=== PATIENT | female | born 1940 | race Caucasian/White ===

== ENCOUNTER 2019-03-29 05:42 | Day surgery (SDC) | payer MEDICARE, SELFPAY ==
[~2019-03-29] VITALS: Ht 167.6 cm; Wt 77.0 kg
[~2019-03-29 05:42] MED LIST: ALBU90OI INH; Aspir 8181 MG PO; HYDHCL25 PO; LISI5 PO; METO25ER PO; METPRE4DP PO; MULTI VITAMIN PO; Monodox100 MG PO; NITR.4SL SL; PROCODE120 PO; Prednisone20 MG PO; SPACE CHAMBER1 EACH MC; VIT C PO
--- NOTE | 2019-03-29 08:30 | NUR ---
Pt received from labor trainer, a/o right radial site without bleeding or hematoma. Pt wide awake cooperative. Slight tenderness on right radial site. Fingers slightly discolored. Pt with iv hep locked. Taking po fluids.
--- NOTE | 2019-03-29 08:45 | NUR ---
@ cc air removed from tr-band for discolored hand and numbness.
--- NOTE | 2019-03-29 09:21 | NUR ---
Pt up to brp voided daljit well. B/p elevated slightly. Eating breakfast.
--- NOTE | 2019-03-29 10:39 | NUR ---
3 cc air removed from tr-band. Discharge instructions given. Pt void 2 nd time.
--- NOTE | 2019-03-29 10:57 | NUR ---
Pt with all air removed from tr-band. Pt given Advance directive information for her and her . Pt also given Heart Failure Information from [facility]. Pt VSS. Taking pos fluids.
--- NOTE | 2019-03-29 11:15 | NUR ---
ASSUMED CARE OF PT. PT IS ALERT, ORIENTED, PLEASENT AND COOPERATIVE. PT DENIES PAIN, SOB OR NAUSEA. HR 80'S, B/P 147/77, SPO2 96% RA. R RADIAL NO SWELLING/HEMATOMA, TR BAND IN PLACE-DEFLATED; WRITST IMMOBILIZER IN PLACE. PT AMB TO BATHROOM WITH PROBLEM, SITE UNCHANGED WITH ACTVITY.
--- NOTE | 2019-03-29 11:16 | NUR ---
Sbramy Cordero RN reviewed right radial site.
--- NOTE | 2019-03-29 12:00 | NUR ---
REVIEWED DISCHARGE INSTRUCTIONS, MED LIST AND AFTER CARE SUPPLEMENTAL MATERIAL; PT VERBALIZED GOOD UNDERSTANDING. R RADIAL SITE REMAINS UNCHANGED, TR BAND REMOVED AND CLOTH DOT APPLIED WITH WRIST IMMOBILIZER; IV REMOVED CANNULA INTACT. PT DRESSED SELF WITHOUT ASSISTANCE, SITE UNCHANGED AFTER ACTIVITY.
--- NOTE | 2019-03-29 12:10 | NUR ---
PT LEFT FACILITY VIA W/C, CONDITION STABLE; TAXI TAKING PT HOME.
== END 2019-03-29 12:30 | disposition home or self-care (01) ==
LOC: MHTC 05:42
DX: I42.9 Cardiomyopathy, unspecified (principal); I25.10 Atherosclerotic heart disease of native coronary artery without angina pectoris; Z79.899 Other long term (current) drug therapy; Z79.82 Long term (current) use of aspirin; Z87.891 Personal history of nicotine dependence
CPT/HCPCS: 93458; 99152; 99153; C1769; C1894; J1644; J7030; Q9967

== ENCOUNTER 2023-04-18 13:01 | Emergency (ER) | payer MEDICARE, OTHER ==
[~2023-04-18] VITALS: Ht 167.6 cm; Wt 72.6 kg
[2023-04-18 14:17] LABS: BASOPHILS ABSOLUTE AUTO 0.03 K/mm3 (0.00-0.23); BASOPHILS PERCENT AUTO 1 % (0-2); EOSINOPHILS ABSOLUTE AUTO 0.15 K/mm3 (0.00-0.68); EOSINOPHILS PERCENT AUTO 3 % (0-6); Hematocrit 42.9 % (33.0-51.0); Hemoglobin 14.2 g/dL (11.5-16.0); IMMATURE GRAN ABSOLUTE AUTO 0.02 K/mm3 (0.00-0.10); IMMATURE GRAN PERCENT AUTO 0 % (0-1); LYMPHOCYTES ABSOLUTE AUTO 1.24 K/mm3 (0.84-5.20); LYMPHOCYTES PERCENT AUTO 23 % (21-46); MONOCYTES ABSOLUTE AUTO 0.66 K/mm3 (0.16-1.47); MONOCYTES PERCENT AUTO 12 % (4-13); Mean Corpuscular HGB 30.7 pg (26.0-34.0); Mean Corpuscular HGB Conc 33.1 g/dL (31.5-36.5); Mean Corpuscular Volume 93 fL (80-100); Mean Platelet Volume 10.1 fL (9.1-12.4); NEUTROPHILS ABSOLUTE AUTO 3.35 K/mm3 (1.96-9.15); NEUTROPHILS PERCENT AUTO 61 % (41-73); Platelet Count 271 K/mm3 (150-400); RDW Standard Deviation 44.4 fL (35.1-46.3); Red Blood Cell Count 4.63 M/mm3 (3.80-5.20); White Blood Cell Count 5.45 K/mm3 (4.00-11.30)
[2023-04-18 15:08] LABS: Albumin, Blood 3.5 g/dL (3.4-5.0); Albumin/Globulin Ratio 0.9 (0.8-1.8); Bilirubin, Total 0.5 mg/dL (0.1-1.0); Bun/Creatinine Ratio 29.5 (12.0-20.0); Calcium, Blood 9.8 mg/dL (8.5-10.1); Creatinine, Blood 0.61 mg/dL (0.40-1.00); Globulin, Blood 3.7 g/dL (2.2-4.0); Potassium, Blood 3.9 mmol/L (3.5-5.5); Total Protein, Blood 7.2 g/dL (6.4-8.2)
[2023-04-18] MEDS ORDERED: FURO20 PO (16:52)
[2023-04-18 18:03] VITALS: BP 131/80
== END 2023-04-18 18:17 | disposition home or self-care (01) ==
LOC: ER 13:01
PROVIDERS: Physician Assistant
DX: I50.20 Unspecified systolic (congestive) heart failure (principal); I44.7 Left bundle-branch block, unspecified; I42.8 Other cardiomyopathies; I25.10 Atherosclerotic heart disease of native coronary artery without angina pectoris; Z79.82 Long term (current) use of aspirin; Z87.891 Personal history of nicotine dependence
CPT/HCPCS: 71046; 80053; 83690; 83880; 84484; 85025; 93005; 93010; 96374; 99285-25; J1940

== ENCOUNTER 2023-06-04 09:37 | Inpatient (IN) | payer MEDICARE ==
[~2023-06-04] VITALS: Ht 165.1 cm; Wt 75.5 kg
[~2023-06-04 09:37] MED LIST changes: +FURO20 PO
[2023-06-04 10:25] LABS: BASOPHILS ABSOLUTE AUTO 0.03 K/mm3 (0.00-0.23); BASOPHILS PERCENT AUTO 1 % (0-2); EOSINOPHILS ABSOLUTE AUTO 0.13 K/mm3 (0.00-0.68); EOSINOPHILS PERCENT AUTO 2 % (0-6); Hematocrit 41.2 % (33.0-51.0); Hemoglobin 13.6 g/dL (11.5-16.0); IMMATURE GRAN ABSOLUTE AUTO 0.02 K/mm3 (0.00-0.10); IMMATURE GRAN PERCENT AUTO 0 % (0-1); LYMPHOCYTES ABSOLUTE AUTO 1.06 K/mm3 (0.84-5.20); LYMPHOCYTES PERCENT AUTO 17 % (21-46); MONOCYTES ABSOLUTE AUTO 0.71 K/mm3 (0.16-1.47); MONOCYTES PERCENT AUTO 11 % (4-13); Mean Corpuscular HGB 31.3 pg (26.0-34.0); Mean Corpuscular Volume 95 fL (80-100); Mean Platelet Volume 10.8 fL (9.1-12.4); NEUTROPHILS ABSOLUTE AUTO 4.38 K/mm3 (1.96-9.15); NEUTROPHILS PERCENT AUTO 69 % (41-73); Platelet Count 218 K/mm3 (150-400); RDW Coefficient Variation 13.4 % (11.7-14.2); RDW Standard Deviation 45.8 fL (35.1-46.3); Red Blood Cell Count 4.35 M/mm3 (3.80-5.20); White Blood Cell Count 6.33 K/mm3 (4.00-11.30)
[2023-06-04 10:34] LABS: Albumin/Globulin Ratio 0.9 (0.8-1.8); Bilirubin, Total 0.9 mg/dL (0.1-1.0); Bun/Creatinine Ratio 26.3 (12.0-20.0); Calcium, Blood 8.9 mg/dL (8.5-10.1); Creatinine, Blood 0.57 mg/dL (0.40-1.00); Globulin, Blood 3.2 g/dL (2.2-4.0); Potassium, Blood 3.9 mmol/L (3.5-5.5); Total Protein, Blood 6.2 g/dL (6.4-8.2)
[2023-06-04 16:40] LABS: CHOL/HDL RATIO 2.8; Cholesterol 168 mg/dL (50-200); HDL Cholesterol 60 mg/dL (>39); LDL/HDL RATIO 1.6; Low Density Lipoprotein Chol 95 mg/dL (0-110); Triglycerides 67 mg/dL (30-160); Very Low Density Lipoprot Chol 13 mg/dL (6-32)
[2023-06-04 16:42] VITALS: BP 121/81
--- NOTE | 2023-06-04 18:12 | NUR ---
ADMISSION NOTE: PATIENT ARRIVES TO ROOM VIA WHEELCHAIR AT 1640 FROM ER FOR DX'S OF ACUTE ON CHRONIC CHF. PATIENT A/OX4, ANSWER TO QUESTIONS APPROPRIATELY, CALM, PLEASANT AND COOPERATIVE c CARE. PATIENT ORIENTATED TO ROOM AND CALL SYSTEM. ADMISSION AND SKIN ASSESSMENT c 2 RN'S VERIFIED COMPLETED. PATIENT DENIES CP/PRESSURE, DIZZINESS AND GENERALIZED PAIN. PATIENT REPORTS BREATHING HAS IMPROVED AFTER RECEIVING 40 MG OF LASIX IN ER. PATIENT ON RA c SPO2 97%. PATIENT ON TELE, NSR HR IN THE HIGH 80'S BPM c OCCASIONAL BBB. PATIENT HAS PLUS 2 EDEMA TO BLE'S AND PLUS 2 PITTING EDEMA TO FEET. PATIENT IS CONTINENCE OF BLADDER AND AMBULATES TO BATHROOM INDEPENDENTLY WITHOUT USING ANY ASSISTIVE DEVICE. VITAL SIGNS REVIEWED. PIV TO RAC SALINE LOCKED. CALL LIGHT IN REACH.
--- NOTE | 2023-06-04 18:35 | NUR ---
LATE NOTE FOR 06/03/23 AT 1936 PT'S RN REQUESTED MED CHANGES. REPORTED PT WITH HYPEREMESIS WITH SEVERE EPIGASTRIC PAIN. THAT THE ZOFRAN WAS NOT WORKING, PT REPORTEDLY PREFERRED PHENERGAN MD; AND FENTANYL AND/OR DILAUDID WAS MORE EFFECTIVE. CALL PLACED TO MD SECURITY VEHICLE PATROL OFFICER, DR HOUSE VOICED HE WOULD ASSESS AND PUT IN THE ORDERS.
[2023-06-04 19:38] VITALS: BP 101/70
--- NOTE | 2023-06-05 04:20 | NUR ---
SHIFT SUMMARY LIANA WAS ALERT, FULLY ORIENTED, PLEASANT AND COOPERATIVE AT ASSESSMENT. PT ADMITTED FOR CHF EXACERBATION WITH EJF OF 20%, AND INCREASING SOB. PT IS STABLE ON HER FEET AND INDEPENDENT IN ROOM PT EXPLAINED TO ME THAT SHE DOES NOT LIKE TO TAKE ANY MEDICATION UNLESS IT IS ABSOLUTELY NECESSARY. PT STATES THAT THE LASIX SHE RECIEVED IN THE ED DID HELP WITH HER SOB. SHE WAS HAVING SOME DYSPNEA TONIGHT WHICH WAS ALLEVIATED WITH 1L O2 VIA NC.
[2023-06-05 04:29] VITALS: BP 103/66
[2023-06-05 06:12] LABS: BASOPHILS ABSOLUTE AUTO 0.03 K/mm3 (0.00-0.23); BASOPHILS PERCENT AUTO 1 % (0-2); EOSINOPHILS ABSOLUTE AUTO 0.22 K/mm3 (0.00-0.68); EOSINOPHILS PERCENT AUTO 4 % (0-6); Hematocrit 39.6 % (33.0-51.0); Hemoglobin 13.4 g/dL (11.5-16.0); IMMATURE GRAN ABSOLUTE AUTO 0.02 K/mm3 (0.00-0.10); IMMATURE GRAN PERCENT AUTO 0 % (0-1); LYMPHOCYTES ABSOLUTE AUTO 1.22 K/mm3 (0.84-5.20); LYMPHOCYTES PERCENT AUTO 22 % (21-46); MONOCYTES ABSOLUTE AUTO 0.65 K/mm3 (0.16-1.47); MONOCYTES PERCENT AUTO 12 % (4-13); Mean Corpuscular HGB 32.2 pg (26.0-34.0); Mean Corpuscular HGB Conc 33.8 g/dL (31.5-36.5); Mean Corpuscular Volume 95 fL (80-100); Mean Platelet Volume 11.4 fL (9.1-12.4); NEUTROPHILS ABSOLUTE AUTO 3.33 K/mm3 (1.96-9.15); NEUTROPHILS PERCENT AUTO 61 % (41-73); Platelet Count 207 K/mm3 (150-400); RDW Coefficient Variation 13.4 % (11.7-14.2); RDW Standard Deviation 45.7 fL (35.1-46.3); Red Blood Cell Count 4.16 M/mm3 (3.80-5.20); White Blood Cell Count 5.47 K/mm3 (4.00-11.30)
[2023-06-05 06:40] LABS: Bun/Creatinine Ratio 30.9 (12.0-20.0); Creatinine, Blood 0.62 mg/dL (0.40-1.00); Magnesium, Blood 2.1 mg/dL (1.6-2.4); Potassium, Blood 3.6 mmol/L (3.5-5.5)
[2023-06-05 08:06] VITALS: BP 113/73
--- NOTE | 2023-06-05 14:59 | NUR ---
SHIFT SUMMARY PT AWAKE DURING SHIFT REPORT THIS AM. VERY PLEASANT AND CO-OP. UP INDEPENDENTLY IN RM. RECEIVING LASIX FOR RECENTLY NEW DX OF CHF. PT UP TO BTHRM NEEDED VOIDING WELL. DR CLAY IN TO SEE PT EARLY. PT INSTRUCTED ON MONITORING URINE OUTPUT. PT ON RA WITH BIOX @ 94%. LE'S WITH 1+ EDEMA. FINE CRACKLES TO RLL. DENIES FURTHER NEEDS AT THIS TIME. CALL LT IN REACH.
[2023-06-05 16:08] VITALS: BP 99/71
[2023-06-05 17:45] VITALS: BP 107/73
[2023-06-05 19:20] VITALS: BP 108/67
--- NOTE | 2023-06-06 04:39 | NUR ---
SHIFT SUMMARY PT A&O X4, COOPERATIVE WITH CARE. PT AMBULATIN IND IN ROOM. CONTINENT. STRICT I&O. BLE EDEMA PRESENT ELEVATED ON PILLOWS. PT CURRENTLY ON RA WITH SATS @ 95%. FAMILY AT BEDSIDE AT START OF SHIFT. PT DENIES ANY PAIN OR DISCOMFORT. BED KEPT IN LOWEST POSITION WITH CALL LIGHT WITHIN REACH. WILL CONTINUE TO MONITOR.
[2023-06-06 05:22] VITALS: BP 112/73
[2023-06-06 05:43] LABS: Calcium, Blood 8.8 mg/dL (8.5-10.1); Creatinine, Blood 0.58 mg/dL (0.40-1.00); Potassium, Blood 3.4 mmol/L (3.5-5.5)
[2023-06-06 07:44] VITALS: BP 101/77
[2023-06-06 15:42] VITALS: BP 109/76
--- NOTE | 2023-06-06 16:26 | NUR ---
SHIFT SUMMARY PT RESTING QUIETLY AT START OF SHIFT. UP INDEPENDENTLY IN RM AND TO BTHRM. SITTING UP TO EOB FOR MEALS AND LATER TO CHAIR AT BS THRU OUT THE DAY. LISINOPRIL HELD FOR PARAMETERS TODAY. PT ABLE TO TAKE REMAINING PO MEDS. HAVING DIFFICULTY WITH LARGE KCL. PT C/O NAUSEA EARLY THIS AM, PRIOR TO BREAKFAST; "NO VOMITING, JUST NAUSEA". DR CLAY IN TO SEE PT AND DISCUSS PLAN OF CARE. PT TO REMAIN IN HOSPITAL ANOTHER DAY D/T BLE EDEMA; PT RECEIVING LASIX. PT HAD STATED THAT SHE [facility] AT 1300; [facility] NOTIFIED TO CONFIRM APPOINTMENT. PT MISTAKEN, NO APPOINTMENT SCHEDULED UNTIL Jul AT 10:45. PT INFORMED AND CALLED [facility] HERSELF, BEING TOLD THE SAME INFORMATION. BED LINENS CHANGED TODAY PT HAD ASKED TO TAKE A SHOWER, BUT THEN CONTINUED TO DECLINE, TO PRESENT, D/T NOT FEELING WELL. DR CLAY NOTIFIED FOR ZOFRAN; GIVEN PER EMAR. PT HAS ACTUALLY BEEN MUCH MORE ACTIVE TODAY THAN YESTERDAY AND W/O COMPLAINTS OF SOB. VSS; SEE CHART. PLEASANT AND CO-OP WITH CARE. ABLE TO MAKE NEEDS KNOWN.
--- NOTE | 2023-06-06 17:50 | NUR ---
PT REPORTED NAUSEA GONE AND FEELING MUCH BETTER. SITTING UP TO EOB EATING DINNER AND TALKING WITH FAMILY.
[2023-06-06 19:31] VITALS: BP 103/69
[2023-06-07 03:00] VITALS: BP 104/54
[2023-06-07 07:51] VITALS: BP 104/75
[2023-06-07 08:55] LABS: Bun/Creatinine Ratio 32.5 (12.0-20.0); Calcium, Blood 9.1 mg/dL (8.5-10.1); Creatinine, Blood 0.62 mg/dL (0.40-1.00); Potassium, Blood 4.3 mmol/L (3.5-5.5)
[2023-06-07 14:52] LABS: Adenovirus Not Detected (NOT DETECT); Bordetella pertussis Not Detected (NOT DETECT); Chlamydophila pneumoniae Not Detected (NOT DETECT); Coronavirus 229E Not Detected (NOT DETECT); Coronavirus HKU1 Not Detected (NOT DETECT); Coronavirus NL63 Not Detected (NOT DETECT); Coronavirus OC43 Not Detected (NOT DETECT); Human Metapneumovirus Not Detected (NOT DETECT); Human Rhinovirus/Enterovirus Not Detected (NOT DETECT); Influenza A/2009-H1 Not Detected (NOT DETECT); Influenza A/H1 Not Detected (NOT DETECT); Influenza A/H3 Not Detected (NOT DETECT); Influenza B Not Detected (NOT DETECT); Mycoplasma pneumoniae Not Detected (NOT DETECT); Parainfluenza Virus 1 Not Detected (NOT DETECT); Parainfluenza Virus 2 Not Detected (NOT DETECT); Parainfluenza Virus 3 Not Detected (NOT DETECT); Parainfluenza Virus 4 Not Detected (NOT DETECT); Respiratory Syncytial Virus Not Detected (NOT DETECT); SARS-Cov-2 (COVID-19), BioFire Not Detected (NOT DETECT)
[2023-06-07 15:22] VITALS: BP 106/72
[2023-06-07] MEDS ORDERED: FUROSEMIDE20 MG PO (18:28)
[2023-06-07] MEDS ORDERED: CARVEDILOL6.25 MG PO (18:28)
[2023-06-07] MEDS ORDERED: LOSARTAN POTASS25 M2 PO (18:29)
--- NOTE | 2023-06-07 18:48 | NUR ---
SUMMARY- PT A/O X4- UP IN ROOM INDEPENDANTLY. DIURESING/ON STRICT I/O. SWELLING IN LE MINIMAL 1 NON PITTING. DIM L BASE BUT NO CRACKLES HEARD. PT STATES SHE FEELS VERY WEAK AND WIPED OUT LIKE SHE MAY BE GETTING SICK. RESP SWAB NEGATIVE. TELE CALLED 12[address] OF [address] ELEVATION. RESOLVED BEFORE RN REMEMBERED TO CALL DR. CALLED DR ROBERTS AND NOTIFIED OF SLIGHT ST ELEVATION AROUND 1700, OBTAINED EKG THAT SHOWED SR, BBB, ATRIAL ENLARGEMENT, CALLED DR ROBERTS AFTERWARD TO NOTIFY OF RESULTS. PT TOLERATING FOOD AND FLUIDS. WILL REPORT TO NOC RN. -
[2023-06-07 19:39] VITALS: BP 98/72
[2023-06-08] VITALS (7 sets, daily range): BP systolic 102–126; BP diastolic 69–101
--- NOTE | 2023-06-08 11:13 | NUR ---
TELEMETRY NOTIFIED RN OF ST ALARMS ON THE PATIENTS TELEMETRY AT 11:09. PATIENT STATED AT THE TIME THAT SHE WAS NOT HAVING ANY SOB OR CHEST PAIN AT THAT TIME. DR. HOUSE NOTIFIED BY PHONE AT 11:[address] ALARMS, HE STATED THAT WITH HER BBB AND WITH HER BEING ASYMPTOMATIC, HE IS NOT CONCERNED OF THE ST ALARMS AT THIS TIME.
--- NOTE | 2023-06-08 18:53 | NUR ---
PATIENT IS ALERT AND ORIENTED AND COOPERATIVE WITH CARE. PATIENT C/O LIGHTHEADEDNESS AND ATTRIBUTES IT TO THE NEW MEDICATIONS SHES ON. DR. HOUSE IS AWARE OF THIS. PT HAD A BM THIS SHIFT. NEW IV PLACE IN HER RIGHT WRIST. PATIENT HOPES TO GO HOME TOMORROW. ON RA. WILL CONTINUE TO MONITOR
[2023-06-09 04:29] VITALS: BP 127/79
[2023-06-09 05:38] LABS: Bun/Creatinine Ratio 30.6 (12.0-20.0); Calcium, Blood 9.3 mg/dL (8.5-10.1); Creatinine, Blood 0.65 mg/dL (0.40-1.00); Magnesium, Blood 2.4 mg/dL (1.6-2.4); Potassium, Blood 4.2 mmol/L (3.5-5.5)
--- NOTE | 2023-06-09 06:50 | NUR ---
Shift Summary No calls from telemetry this shift. Pt still c/o some light-headedness. Pt independent in the room, slept well t/o the night, no c/o pain or nausea. Pt voiced concerns about current medications, markie lasix, education provided.
[2023-06-09 08:26] VITALS: BP 107/94
[2023-06-09 08:30] VITALS: BP 109/76
[2023-06-09 08:31] VITALS: BP 109/76
[2023-06-09] MEDS ORDERED: LISI5 PO (10:00)
[2023-06-09] MEDS ORDERED: JARDIANCE10 MG PO (10:00)
[2023-06-09] MEDS ORDERED: SPIR25 PO (10:01)
[2023-06-09 10:46] VITALS: BP 109/76
--- NOTE | 2023-06-09 10:47 | NUR ---
TELE CALLED AT [address] CHANGES. PT REPORTS NO CP. WILL CALL DR. HOUSE
--- NOTE | 2023-06-09 11:21 | NUR ---
DR. HOUSE READ THE EKG AND DETERMINED THE "ST CHANGES" REPORTED BY TELEMETRY WAS HER BBB. WILL CONTINUE TO DISCHARGE
== END 2023-06-09 11:42 | disposition home or self-care (01) | DRG 291 ==
LOC: ER 09:37 → MEDS 13:42 → ENPENDDIS 06-09 09:11 → MEDS 06-09 11:42
PROVIDERS: Physician Assistant; Student in an Organized Health Care Education/Training Program; ADMIT Family Medicine
DX: I11.0 Hypertensive heart disease with heart failure (principal); I50.43 Acute on chronic combined systolic (congestive) and diastolic (congestive) heart failure; I48.0 Paroxysmal atrial fibrillation; I25.10 Atherosclerotic heart disease of native coronary artery without angina pectoris; E78.5 Hyperlipidemia, unspecified; I34.0 Nonrheumatic mitral (valve) insufficiency; I44.7 Left bundle-branch block, unspecified; Z87.891 Personal history of nicotine dependence; E87.6 Hypokalemia; Z11.52 Encounter for screening for COVID-19
CPT/HCPCS: 0202U; 36415; 71046; 80048; 80053; 80061; 83690; 83735; 83880; 84484; 85025; 93005; 93010; 94760; 96372; 96374; 99285-25; A9270; G0378; J1650; J1940; J2405

== ENCOUNTER 2023-09-24 15:46 | Emergency (ER) | payer MEDICARE ==
[~2023-09-24] VITALS: Ht 167.6 cm; Wt 72.6 kg
[~2023-09-24 15:46] MED LIST changes: +BUME1 PO; +Bisoprolol Fumar5 MG PO; +CARV3.125 PO; +Diovan40 MG PO; +FUROSEMIDE20 MG PO; +JARDIANCE10 MG PO; +LOSARTAN POTASS25 M2 PO; +POTA10T PO; +SPIR25 PO
[2023-09-24 16:10] VITALS: BP 122/89
[2023-09-24 16:37] LABS: BASOPHILS ABSOLUTE AUTO 0.04 K/mm3 (0.00-0.23); BASOPHILS PERCENT AUTO 1 % (0-2); EOSINOPHILS ABSOLUTE AUTO 0.21 K/mm3 (0.00-0.68); EOSINOPHILS PERCENT AUTO 3 % (0-6); Hematocrit 42.1 % (33.0-51.0); Hemoglobin 13.6 g/dL (11.5-16.0); IMMATURE GRAN ABSOLUTE AUTO 0.03 K/mm3 (0.00-0.10); IMMATURE GRAN PERCENT AUTO 0 % (0-1); LYMPHOCYTES ABSOLUTE AUTO 1.12 K/mm3 (0.84-5.20); LYMPHOCYTES PERCENT AUTO 14 % (21-46); MONOCYTES ABSOLUTE AUTO 0.89 K/mm3 (0.16-1.47); MONOCYTES PERCENT AUTO 11 % (4-13); Mean Corpuscular HGB 30.6 pg (26.0-34.0); Mean Corpuscular HGB Conc 32.3 g/dL (31.5-36.5); Mean Corpuscular Volume 95 fL (80-100); Mean Platelet Volume 10.3 fL (9.1-12.4); NEUTROPHILS PERCENT AUTO 71 % (41-73); Platelet Count 234 K/mm3 (150-400); Red Blood Cell Count 4.44 M/mm3 (3.80-5.20); White Blood Cell Count 7.79 K/mm3 (4.00-11.30)
[2023-09-24 16:57] LABS: Albumin, Blood 3.2 g/dL (3.4-5.0); Bilirubin, Total 1.1 mg/dL (0.1-1.0); Bun/Creatinine Ratio 24.2 (12.0-20.0); Calcium, Blood 8.9 mg/dL (8.5-10.1); Creatinine, Blood 0.7 mg/dL (0.40-1.00); Globulin, Blood 3.2 g/dL (2.2-4.0); Potassium, Blood 4.3 mmol/L (3.5-5.5); Total Protein, Blood 6.4 g/dL (6.4-8.2)
[2023-09-24] MEDS ORDERED: Furosemide 10 MG/ML 4ML Vial IV ONE (18:20)
== END 2023-09-24 18:43 | disposition home or self-care (01) ==
LOC: ER 15:46
PROVIDERS: Physician Assistant
DX: I11.0 Hypertensive heart disease with heart failure (principal); I50.40 Unspecified combined systolic (congestive) and diastolic (congestive) heart failure; I25.10 Atherosclerotic heart disease of native coronary artery without angina pectoris; Z87.891 Personal history of nicotine dependence; Z91.148 Patient's other noncompliance with medication regimen for other reason
CPT/HCPCS: 71046; 80053; 83880; 85025; 93005; 93010; 96374; 99285-25; J1940

== ENCOUNTER 2023-10-04 11:04 | Inpatient (IN) | payer MEDICARE ==
[~2023-10-04] VITALS: Ht 167.6 cm; Wt 77.7 kg
[2023-10-04 12:15] LABS: BASOPHILS ABSOLUTE AUTO 0.03 K/mm3 (0.00-0.23); BASOPHILS PERCENT AUTO 0 % (0-2); EOSINOPHILS ABSOLUTE AUTO 0.06 K/mm3 (0.00-0.68); EOSINOPHILS PERCENT AUTO 1 % (0-6); Hematocrit 42.6 % (33.0-51.0); IMMATURE GRAN ABSOLUTE AUTO 0.04 K/mm3 (0.00-0.10); IMMATURE GRAN PERCENT AUTO 1 % (0-1); LYMPHOCYTES ABSOLUTE AUTO 0.86 K/mm3 (0.84-5.20); LYMPHOCYTES PERCENT AUTO 13 % (21-46); MONOCYTES ABSOLUTE AUTO 0.79 K/mm3 (0.16-1.47); MONOCYTES PERCENT AUTO 12 % (4-13); Mean Corpuscular HGB Conc 32.9 g/dL (31.5-36.5); Mean Corpuscular Volume 94 fL (80-100); Mean Platelet Volume 10.3 fL (9.1-12.4); NEUTROPHILS ABSOLUTE AUTO 5.11 K/mm3 (1.96-9.15); NEUTROPHILS PERCENT AUTO 74 % (41-73); Platelet Count 236 K/mm3 (150-400); RDW Coefficient Variation 13.5 % (11.7-14.2); RDW Standard Deviation 46.5 fL (35.1-46.3); Red Blood Cell Count 4.52 M/mm3 (3.80-5.20); White Blood Cell Count 6.89 K/mm3 (4.00-11.30)
[2023-10-04 12:41] LABS: Albumin, Blood 2.9 g/dL (3.4-5.0); Albumin/Globulin Ratio 0.8 (0.8-1.8); Bilirubin, Total 1.3 mg/dL (0.1-1.0); Bun/Creatinine Ratio 27.4 (12.0-20.0); Calcium, Blood 9.5 mg/dL (8.5-10.1); Creatinine, Blood 0.55 mg/dL (0.40-1.00); Globulin, Blood 3.5 g/dL (2.2-4.0); Potassium, Blood 3.5 mmol/L (3.5-5.5); Total Protein, Blood 6.4 g/dL (6.4-8.2)
[2023-10-04] MEDS ORDERED: Furosemide 10 MG/ML 4ML Vial IV ONE (16:30)
[2023-10-04] MEDS ORDERED: Ondansetron HCl 2 MG / ML 2ML Vial IV PRN (18:50)
[2023-10-04] MEDS ORDERED: FURO20 PO (20:11)
[2023-10-04 22:53] VITALS: BP 123/79
[2023-10-05] VITALS (9 sets, daily range): BP systolic 90–124; BP diastolic 63–94
[2023-10-05 05:11] LABS: BASOPHILS ABSOLUTE AUTO 0.05 K/mm3 (0.00-0.23); BASOPHILS PERCENT AUTO 1 % (0-2); EOSINOPHILS ABSOLUTE AUTO 0.22 K/mm3 (0.00-0.68); EOSINOPHILS PERCENT AUTO 4 % (0-6); Hematocrit 39.6 % (33.0-51.0); Hemoglobin 12.8 g/dL (11.5-16.0); IMMATURE GRAN ABSOLUTE AUTO 0.02 K/mm3 (0.00-0.10); IMMATURE GRAN PERCENT AUTO 0 % (0-1); LYMPHOCYTES ABSOLUTE AUTO 1.12 K/mm3 (0.84-5.20); LYMPHOCYTES PERCENT AUTO 18 % (21-46); MONOCYTES ABSOLUTE AUTO 0.81 K/mm3 (0.16-1.47); MONOCYTES PERCENT AUTO 13 % (4-13); Mean Corpuscular HGB 31.2 pg (26.0-34.0); Mean Corpuscular HGB Conc 32.3 g/dL (31.5-36.5); Mean Corpuscular Volume 97 fL (80-100); Mean Platelet Volume 10.5 fL (9.1-12.4); NEUTROPHILS ABSOLUTE AUTO 4.05 K/mm3 (1.96-9.15); NEUTROPHILS PERCENT AUTO 65 % (41-73); Platelet Count 219 K/mm3 (150-400); RDW Coefficient Variation 13.6 % (11.7-14.2); RDW Standard Deviation 48.3 fL (35.1-46.3); White Blood Cell Count 6.27 K/mm3 (4.00-11.30)
[2023-10-05 06:03] LABS: Albumin, Blood 2.7 g/dL (3.4-5.0); Albumin/Globulin Ratio 0.9 (0.8-1.8); Bun/Creatinine Ratio 26.4 (12.0-20.0); Calcium, Blood 9.3 mg/dL (8.5-10.1); Creatinine, Blood 0.76 mg/dL (0.40-1.00); Globulin, Blood 3.1 g/dL (2.2-4.0); Potassium, Blood 3.6 mmol/L (3.5-5.5); Total Protein, Blood 5.8 g/dL (6.4-8.2)
--- NOTE | 2023-10-05 06:09 | NUR ---
SHIFT SUMMARY: Pt admitted for acute on chronic CHF and is a full code. Is alert and able to make needs known. ADLs have been SBA. denies pain or discomfort when asked. Stated that she did have some palpitations causing some short of breath but they did resolve.
[2023-10-05] MEDS ORDERED: Carvedilol 3.125 MG Tab PO SCH (08:00)
[2023-10-05] MEDS ORDERED: Losartan Potassium 25 MG Tab PO SCH (09:00)
[2023-10-05] MEDS ORDERED: Empagliflozin 10 MG TAB PO SCH (09:00)
[2023-10-05] MEDS ORDERED: Spironolactone 25 MG Tab PO SCH (09:00)
[2023-10-05] MEDS ORDERED: Furosemide 10 MG/ML 4ML Vial IV SCH (09:00)
[2023-10-05] MEDS ORDERED: Enoxaparin 40 MG/0.4 ML SYR SC SCH (09:00)
--- NOTE | 2023-10-05 16:28 | NUR ---
Patient immediately shares her medical history and her desire to incorporate more wholistic medicine into the equation but understands the about adhering to the prescribed medical path. She talks about her 's lack of coping skills and resources. She has a strong Gnosticist kelsey and requests prayer, which I gladly supply. I also allow space for therapeutic listening and for her verbalize the many worries she is carrying. We discuss the importance of self-care and rest (not just physical rest but mental and emotional rest as well). I provide prayer which patient was very enthusiastic about and asked if I could return next day and provde again. I will continue to remaina available to patient and family.
--- NOTE | 2023-10-05 16:42 | NUR ---
SHIFT SUMMARY-DAY A&O X4. ABLE TO MAKE NEEDS KNOWN. ADL'S HAVE BEEN SBA AND USES WALKER AT TIMES. BEDSIDE COMMODE AT BEDSIDE TO GET MORE ACCURATE I&O. DENIES PAIN OR DISCOMFORT. WAS ANXIOUS THIS MORNING AND BETTER THIS AFTERNOON WITH FAMILY VISITING. EMDEMA TO LEGS AND FEET WITH SCD'S ON. PEDAL PLULSES WEAK BUT PRESENT. HAS BEEN FREQUENT ON THE CALL LIGHT.
--- NOTE | 2023-10-05 17:14 | NUR ---
CALLED DR HUTCHINS- PT BP 110/81 SHE HAS CARVEDILOL AND 40MG IV LASIX ORDERED NOW. SPOKE TO DR HUTCHINS AND HE IS AWARE OF THE BP AT THIS TIME. ORDER RECIEVED TO GIVE THESE MEDS.
--- NOTE | 2023-10-05 17:49 | NUR ---
SHIFT SUMMARY- PT ALERT AND ORIENTED, HAS HAD NO ACUTE CHANGE T/O THE SHIFT. SPOKE TO MD ABOUT BLOOD PRESSURES, PT TO CONTINUE TO RECIEVE IV DIURETICS AT THIS TIME. PT PLACED ON A 2L FLUID RESTRICTION DURING THE DAY. PT HAS BEEN UP INDEPENDENTLY TO THE BSC T/O THE DAY. BSC BEING USED THE PT WAS UNABLE TO HIT THE HAT FOR ACCURATE I&O'S. PT SITTING ON THE EOB NO S&S OF DISTRESS NOTED AT THIS TIME.
[2023-10-05 20:29] LABS: Bun/Creatinine Ratio 28.9 (12.0-20.0); Calcium, Blood 9.1 mg/dL (8.5-10.1); Creatinine, Blood 0.83 mg/dL (0.40-1.00); Potassium, Blood 3.7 mmol/L (3.5-5.5)
[2023-10-06 05:26] VITALS: BP 91/62
--- NOTE | 2023-10-06 05:40 | NUR ---
END OF SHIFT SUMMARY PT A&OX4, VERY ANXIOUS, SOB WITH EXERTION AND ANXIETY. PT COMPLAINS THAT LASIX AND COREG ARE CAUSING HER TO FEEL SICK BUT CANT VERBALIZE EXACT SYMPTOMS ALTHOUGH DURING NIGHT, PT STATED SHE FELT NAUSEATED. ZOFRAN GIVEN WITH GOOD EFFECT. PT STATED SHE NO LONGER WANTS TO TAKE MEDS, ENCOURAGED PT TO DISCUSS WITH MD AGAIN. EDEMA TO BLE, ENCOURAGED PT TO ELEVATE ON PILLOWS.
[2023-10-06 05:51] LABS: BASOPHILS ABSOLUTE AUTO 0.05 K/mm3 (0.00-0.23); BASOPHILS PERCENT AUTO 1 % (0-2); EOSINOPHILS PERCENT AUTO 4 % (0-6); Hematocrit 40.1 % (33.0-51.0); Hemoglobin 12.9 g/dL (11.5-16.0); IMMATURE GRAN ABSOLUTE AUTO 0.01 K/mm3 (0.00-0.10); IMMATURE GRAN PERCENT AUTO 0 % (0-1); LYMPHOCYTES PERCENT AUTO 21 % (21-46); MONOCYTES ABSOLUTE AUTO 0.71 K/mm3 (0.16-1.47); MONOCYTES PERCENT AUTO 12 % (4-13); Mean Corpuscular HGB Conc 32.2 g/dL (31.5-36.5); Mean Corpuscular Volume 96 fL (80-100); Mean Platelet Volume 10.5 fL (9.1-12.4); NEUTROPHILS ABSOLUTE AUTO 3.61 K/mm3 (1.96-9.15); NEUTROPHILS PERCENT AUTO 62 % (41-73); Platelet Count 230 K/mm3 (150-400); RDW Coefficient Variation 13.6 % (11.7-14.2); RDW Standard Deviation 48.1 fL (35.1-46.3); Red Blood Cell Count 4.16 M/mm3 (3.80-5.20); White Blood Cell Count 5.78 K/mm3 (4.00-11.30)
[2023-10-06 06:25] LABS: Calcium, Blood 9.2 mg/dL (8.5-10.1); Creatinine, Blood 0.72 mg/dL (0.40-1.00); Potassium, Blood 3.6 mmol/L (3.5-5.5)
[2023-10-06 08:20] VITALS: BP 116/74
--- NOTE | 2023-10-06 09:07 | NUR ---
Patient is sitting on a chair and shares about her spouse and the disruption that he caused in the hospital and how this causes unrest for her. She also tells me her concerns about him not managing the finances well while she is unable to supervise spending. Inspite of the chaos that spins around her she states that she is improving medically and that she got a wonderful deep sleep last night. I provide gentle counseling program leader and prayer. Patient showed signs of increased peace. Spiritual care will remain available.
--- NOTE | 2023-10-06 09:47 | NUR ---
"Spiritual Care Support | Pt./Nurse request. Contacted by attending nurse at the request of the Pt. who had misplaced Spiritual Care contact info (business card). Replacement card is provided. Pt. verbalized gratitude for the spiritual care support."
--- NOTE | 2023-10-06 16:03 | NUR ---
SHIFT SUMMARY MS NORRIS C/O FEELING GENERALLY UNWELL TODAY. SHE SAID THAT SHE DOES NOT TOLERATE HER MEDICATIONS AND THAT THE SYMPTOMS THAT SHE IS HAVING TODAY ARE SIMILAR TO SYMPTOMS SHE HAS HAD IN THE PAST IN RELATION TO HER MEDICATIONS. SHE DESCRIBES VISUAL HALLUCINATIONS, SAID THAT WITH HER EYES CLOSED SHE CAN SEE A "MOVIE" PLAY OUT IN FROM OF HER OF A MAN WITH A DOG, DENIES AUDITORY HALLUCINATIONS. SHE C/O FEELING LIGHTHEADED "LIKE I'M GOING TO PASS OUT AT TIMES" DIZZYNESS, NAUSEA. SHE SAID THAT SHE IS STARTING TO FEEL A LITTLE BETTER AFTER ZOFRAN. HER SISTER IS AT HER BEDSIDE WHO SAID THAT THEY ARE WORKING ON A REFERAL TO A [facility] FOR SURGERY. SHE SAID THAT SHE JUST CAN'T TAKE HER MEDICATIONS. BED LOW, CALL LIGHT IN REACH.
[2023-10-06 16:17] VITALS: BP 97/36
--- NOTE | 2023-10-06 16:27 | NUR ---
MD CALL PULSE OX WHEN PT DOSING WAS IN THE 70S WITH A GOOD WAVEFORM. BP LOW AT 97/36. WHEN AWAKE PULSE OX CAME UP TO 90S WITH DEEP BREATHS. PUT ON OXYGEN 2L NC AND DR PERRY NOTIFIED. HE IS PUTTING IN ORDER FOR ECHO, GAVE ME ORDER FOR OXYGEN AND CONTINUOUS PULSE OX. TELEPHONE ORDER TO HOLD BP MEDS AND LASIX FOR SBP LESS THAN 100.
[2023-10-06 17:44] VITALS: BP 107/82
[2023-10-06 19:54] VITALS: BP 98/71
[2023-10-07 03:23] VITALS: BP 115/78
[2023-10-07 05:45] LABS: BASOPHILS ABSOLUTE AUTO 0.03 K/mm3 (0.00-0.23); BASOPHILS PERCENT AUTO 0 % (0-2); EOSINOPHILS ABSOLUTE AUTO 0.04 K/mm3 (0.00-0.68); EOSINOPHILS PERCENT AUTO 1 % (0-6); Hematocrit 40.2 % (33.0-51.0); IMMATURE GRAN ABSOLUTE AUTO 0.03 K/mm3 (0.00-0.10); IMMATURE GRAN PERCENT AUTO 0 % (0-1); LYMPHOCYTES ABSOLUTE AUTO 0.88 K/mm3 (0.84-5.20); LYMPHOCYTES PERCENT AUTO 11 % (21-46); MONOCYTES ABSOLUTE AUTO 1.08 K/mm3 (0.16-1.47); MONOCYTES PERCENT AUTO 13 % (4-13); Mean Corpuscular HGB Conc 32.3 g/dL (31.5-36.5); Mean Corpuscular Volume 96 fL (80-100); Mean Platelet Volume 10.9 fL (9.1-12.4); NEUTROPHILS PERCENT AUTO 75 % (41-73); Platelet Count 252 K/mm3 (150-400); RDW Coefficient Variation 13.6 % (11.7-14.2); RDW Standard Deviation 47.5 fL (35.1-46.3); White Blood Cell Count 8.16 K/mm3 (4.00-11.30)
--- NOTE | 2023-10-07 07:29 | NUR ---
END OF SHIFT SUMMARY PT A&OX4, REMAINS ANXIOUS AT TIMES, C/O FEELING UNWELL DUE TO MEDICINES GIVEN, SOMETIMES NAUSEATED. PT STATES SHE NO LONGER WANTS TO TAKE MEDS FOR THIS REASON, ENCOURAGED PT TO SPEAK WITH MD REGARDING CONCERNS. ZOFRAN GIVEN WITH GOOD EFFECT. REMAINS ON 2L VIA NC, MONITORED ON CONT PULSE OX. STRICT I&O MAINTAINED, PT COMPLIANT WITH FLUID RESTRICTION. BLE EDEMA IMPROVING.
[2023-10-07 07:51] VITALS: BP 98/66
[2023-10-07 10:16] VITALS: BP 132/81
[2023-10-07 15:12] VITALS: BP 104/72
[2023-10-07 17:34] VITALS: BP 100/72
--- NOTE | 2023-10-07 17:46 | NUR ---
SHIFT SUMMARY 0800 COREG HELD D/T LOW BLOOD PRESSURE BUT MS NORRIS HAS TAKEN ALL OF HER OTHER PRESCRIBED MEDICATIONS TODAY. SHE DESCRIBES LESS DIZZYNESS TODAY THAN YESTERDAY. SHORT LASTING NAUSEA, NOT REQUIRING ANY TREATMENT. SHE REPORTS IMPROVED APPETITE AND HAS EATEN MORE FROM HER TRAYS TODAY. SHE REMAINS ON 2L N/C OXYGEN, CONTINUOUS PULSE OX IN THE 90S ON THE 2L. DISCUSSIONS WITH PT, HER SON AND HER SISTER REGARDING CHF, MEDICATIONS, AND MEDICAL CONDITION. SOME QUESTIONS ANSWERED THOUGH THEY STILL HAVE SOME SPECIFIC QUESTIONS ABOUT MEDICATIONS FOR MDS. HER SON SAID HE IS LOOKING FOR A MIRACLE MEDICATION. MS NORRIS HASN'T BEEN ANXIOUS TODAY. UP TO THE BATHROOM AND TO THE CHAIR WITH STANDBY ASSISTANCE. BED AND CHAIR ALARMS USED. CALL LIGHT IN REACH.
[2023-10-07 19:46] LABS: Bun/Creatinine Ratio 29.7 (12.0-20.0); Calcium, Blood 8.9 mg/dL (8.5-10.1); Creatinine, Blood 0.81 mg/dL (0.40-1.00); Potassium, Blood 3.3 mmol/L (3.5-5.5)
[2023-10-07 19:47] VITALS: BP 98/60
[2023-10-08 02:56] VITALS: BP 105/72
[2023-10-08 05:46] LABS: BASOPHILS ABSOLUTE AUTO 0.05 K/mm3 (0.00-0.23); BASOPHILS PERCENT AUTO 1 % (0-2); EOSINOPHILS ABSOLUTE AUTO 0.16 K/mm3 (0.00-0.68); EOSINOPHILS PERCENT AUTO 2 % (0-6); Hematocrit 40.4 % (33.0-51.0); IMMATURE GRAN ABSOLUTE AUTO 0.05 K/mm3 (0.00-0.10); IMMATURE GRAN PERCENT AUTO 1 % (0-1); LYMPHOCYTES ABSOLUTE AUTO 0.83 K/mm3 (0.84-5.20); LYMPHOCYTES PERCENT AUTO 9 % (21-46); MONOCYTES PERCENT AUTO 12 % (4-13); Mean Corpuscular HGB 30.8 pg (26.0-34.0); Mean Corpuscular HGB Conc 32.2 g/dL (31.5-36.5); Mean Corpuscular Volume 96 fL (80-100); Mean Platelet Volume 10.4 fL (9.1-12.4); NEUTROPHILS ABSOLUTE AUTO 6.81 K/mm3 (1.96-9.15); NEUTROPHILS PERCENT AUTO 76 % (41-73); Platelet Count 251 K/mm3 (150-400); RDW Coefficient Variation 13.4 % (11.7-14.2); Red Blood Cell Count 4.22 M/mm3 (3.80-5.20)
--- NOTE | 2023-10-08 06:06 | NUR ---
END OF SHIFT SUMMARY PT A&OX4, LESS ANXIOUS TODAY. REPORTS FEELING BETTER OVERALL. OXYGEN TITRATED DOWN TO 1L THIS AM, MAINTAINING SATS >92, MONITORED ON CONTINUOUS PULSE OX. BLE EDEMA IMPROVING FROM ADMIT. PT COMPLIANT WITH FLUID RESTRICTION. AMBULATING WELL WITH SBA. NO ACUTE EVENTS OVERNIGHT.
[2023-10-08 07:21] VITALS: BP 110/67
[2023-10-08 12:21] LABS: Bun/Creatinine Ratio 28.9 (12.0-20.0); Creatinine, Blood 0.73 mg/dL (0.40-1.00); Potassium, Blood 3.4 mmol/L (3.5-5.5)
[2023-10-08] MEDS ORDERED: Potassium Chloride 20 MEQ TabCR PO STA (14:26)
[2023-10-08] MEDS ORDERED: CARV3.125 PO (15:50)
[2023-10-08] MEDS ORDERED: SPIR25 PO (15:51)
[2023-10-08] MEDS ORDERED: JARDIANCE10 MG PO (15:51)
[2023-10-08] MEDS ORDERED: LOSA25 PO (15:51)
--- NOTE | 2023-10-08 16:28 | NUR ---
DISCHARGE NOTE MS NORRIS WAS DISCHARGED HOME WITH HER SON VIA WHEELCHAIR AT 1630HRS. SHE HAS BEEN C/O INTERMITTANT LIGHTHEDEDNESS ALL DAY. SEEN AND ASSESSED BY DR PERRY. MS NORRIS DISCUSSED WITH MD AND VERBALISED HER DESIRE TO BE DISCHARGED HOME. PT VERBALISED UNDERSTANDING OF WRITTEN AND VERBAL DISCHARGE INSTRUCTIONS AND HAD NO FURTHER QUESTIONS AT TIME OF DISCHARGE. SHE HAS BEEN WALKING IN THTE ROOM/BATHROOM WITH STEADY GAIT. SHE VERBALISED THAT SHE PANS TO TAKE ALL OF HER MEDICATIONS AT HOME.
== END 2023-10-08 16:31 | disposition home health service (06) | DRG 291 ==
LOC: ER 11:04 → MEDS 18:48
PROVIDERS: Student in an Organized Health Care Education/Training Program; ADMIT Internal Medicine
DX: I11.0 Hypertensive heart disease with heart failure (principal); I50.23 Acute on chronic systolic (congestive) heart failure; I08.1 Rheumatic disorders of both mitral and tricuspid valves; I27.20 Pulmonary hypertension, unspecified; I25.5 Ischemic cardiomyopathy; E78.5 Hyperlipidemia, unspecified; I25.10 Atherosclerotic heart disease of native coronary artery without angina pectoris; R73.9 Hyperglycemia, unspecified; T50.2X6A Underdosing of carbonic-anhydrase inhibitors, benzothiadiazides and other diuretics, initial encounter; Z91.138 Patient's unintentional underdosing of medication regimen for other reason; Z87.891 Personal history of nicotine dependence
CPT/HCPCS: 36415; 71046; 80048; 80053; 83880; 85025; 93005; 93010; 94761; 96374; 97116; 97161; 99285-25; A9270; C8929; J1650; J1940; J2405; Q9957

== ENCOUNTER 2023-10-16 11:17 | Emergency (ER) | payer MEDICARE ==
[~2023-10-16] VITALS: Ht 167.6 cm; Wt 77.1 kg
[2023-10-16 16:45] VITALS: BP 110/78
== END 2023-10-16 16:55 | disposition home or self-care (01) ==
LOC: ER 11:17
DX: I11.0 Hypertensive heart disease with heart failure (principal); I50.40 Unspecified combined systolic (congestive) and diastolic (congestive) heart failure; J90 Pleural effusion, not elsewhere classified; E78.5 Hyperlipidemia, unspecified; I25.10 Atherosclerotic heart disease of native coronary artery without angina pectoris; I42.8 Other cardiomyopathies; Z87.891 Personal history of nicotine dependence; Z79.84 Long term (current) use of oral hypoglycemic drugs; Z79.899 Other long term (current) drug therapy

== ENCOUNTER 2024-05-15 14:37 | Inpatient (IN) | payer MEDICARE ==
[~2024-05-15] VITALS: Ht 167.6 cm; Wt 74.6 kg
[~2024-05-15 14:37] MED LIST changes: +ALBU8HFA2 INH; +ENTRESTO 24 MG1 EACH PO; +LOSA25 PO
[2024-05-15 15:59] LABS: BASOPHILS ABSOLUTE AUTO 0.01 K/mm3 (0.00-0.23); BASOPHILS PERCENT AUTO 0 % (0-2); EOSINOPHILS PERCENT AUTO 0 % (0-6); Hematocrit 46.7 % (33.0-51.0); Hemoglobin 15.3 g/dL (11.5-16.0); IMMATURE GRAN ABSOLUTE AUTO 0.03 K/mm3 (0.00-0.10); IMMATURE GRAN PERCENT AUTO 0 % (0-1); LYMPHOCYTES ABSOLUTE AUTO 0.51 K/mm3 (0.84-5.20); LYMPHOCYTES PERCENT AUTO 7 % (21-46); MONOCYTES ABSOLUTE AUTO 1.02 K/mm3 (0.16-1.47); MONOCYTES PERCENT AUTO 13 % (4-13); Mean Corpuscular HGB 31.8 pg (26.0-34.0); Mean Corpuscular HGB Conc 32.8 g/dL (31.5-36.5); Mean Corpuscular Volume 97 fL (80-100); NEUTROPHILS PERCENT AUTO 80 % (41-73); Platelet Count 189 K/mm3 (150-400); RDW Standard Deviation 50.4 fL (35.1-46.3); Red Blood Cell Count 4.81 M/mm3 (3.80-5.20); White Blood Cell Count 7.87 K/mm3 (4.00-11.30)
[2024-05-15 16:13] LABS: Albumin/Globulin Ratio 0.9 (0.8-1.8); Bun/Creatinine Ratio 18.6 (12.0-20.0); Calcium, Blood 9.4 mg/dL (8.5-10.1); Creatinine, Blood 0.59 mg/dL (0.40-1.00); Globulin, Blood 3.2 g/dL (2.2-4.0); Potassium, Blood 4.1 mmol/L (3.5-5.5); Total Protein, Blood 6.2 g/dL (6.4-8.2)
[2024-05-15] MEDS ORDERED: Bumetanide 0.25 MG/ML 10ML Vial IV ONE (19:35)
[2024-05-15] MEDS ORDERED: Albuterol 2.5 MG/3 ML VIAL INH PRN (20:20)
[2024-05-15 20:25] LABS: Influenza A, PCR NEGATIVE (NEGATIVE); Influenza B, PCR NEGATIVE (NEGATIVE); Resp Syncytial Virus, PCR NEGATIVE (NEGATIVE); SARS-Cov-2 (COVID-19) PCR, MMC NEGATIVE (NEGATIVE)
[2024-05-15] MEDS ORDERED: Sacubitril/Valsartan 24 MG-26 MG Tab PO SCH (21:00)
[2024-05-15] MEDS ORDERED: FLU VACC TS2024-25(6MOS UP)/PF 45 MCG/0.5 ML SYRINGE IM ONE (22:00)
[2024-05-15 22:38] VITALS: BP 109/93
--- NOTE | 2024-05-15 23:13 | NUR ---
PATIENT IS A NEW ADMIT FROM THE ED. TWO ASSIST FROM GURNEY TO BED. AXOX 4 ON 4L O2 NC AND 4L O2 NC BASELINE. SHE WAS ON 3L O2 A MONTH AGO. PUREWICK IN PLACE FROM ED AND CHANGED OUT AND SETUP AGAIN. IV BUMEX GIVEN IN ED PER ED RN. DENIES CHEST PAIN AND N/V. SOB W/EXERTION. TELEMETRY PLACED AND TECH REPORTS NSR 97. LIVE WITH IN [facility]. REPORTS WANTS TO SLEEP AFTER ASSESSMENT AND NO TV. ORIENTED TO ROOM AND CALL LIGHT SYSTEM. WCTM.
[2024-05-16 03:54] VITALS: BP 101/68
--- NOTE | 2024-05-16 04:18 | NUR ---
SHIFT SUMMARY PATIENT HAD A SIX BEAT RUN OF V-TACH AND BACK TO NSR PER NEW GRAD RN. NSR 97 ON ADMIT. AXOX 4 AND BEDREST REPORTING TOO WEAK TO AMBULATE. ON 4L O2 NC AND BASELINE THIS LAST MONTH. PUREWICK IN PLACE WITH 2,550 mL URINE OUTPUT AT THIS POINT. DENIES CHEST PAIN AND N/V. SOB WITH EXERTION. VSS/AFEBRILE. SLEPT AFTER ASSESSMENT. CALL LIGHT IN REACH. BED IN LOWEST POSITION. WILL CONTINUE TO MONITOR UNTIL DAY SHIFT NURSE ASSUMES CARE.
[2024-05-16 06:10] LABS: Bun/Creatinine Ratio 19.2 (12.0-20.0); Calcium, Blood 9.1 mg/dL (8.5-10.1); Creatinine, Blood 0.62 mg/dL (0.40-1.00)
[2024-05-16 06:59] VITALS: BP 127/67
[2024-05-16] MEDS ORDERED: Carvedilol 3.125 MG Tab PO SCH (08:00)
[2024-05-16] MEDS ORDERED: Potassium Chloride 10 Meq Tablet SA PO SCH (08:00)
[2024-05-16] MEDS ORDERED: Potassium Chl 20MEQ/Water100ML 100 ML IV STA (08:02)
[2024-05-16] MEDS ORDERED: Spironolactone 25 MG Tab PO SCH (09:00)
[2024-05-16] MEDS ORDERED: Bumetanide 0.25 MG/ML 4ML ViaL IV SCH (09:00)
[2024-05-16] MEDS ORDERED: Spironolactone 12.5 MG TAB PO SCH (09:00)
[2024-05-16] MEDS ORDERED: Enoxaparin 40 MG/0.4 ML SYR SC SCH (09:00)
[2024-05-16] MEDS ORDERED: NS 250 ML IV PRN (09:35)
[2024-05-16] MEDS ORDERED: CO Q-10100 MG PO (11:50)
[2024-05-16 15:59] VITALS: BP 124/83
--- NOTE | 2024-05-16 16:38 | NUR ---
I had a lengthy visit with the patient today. She shared her many concerns about the medical field, insurance companies and the pharmaceutical industry. She also shares her strong conservative Druze beliefs. She is tearful as she shares her worries about her son and her . I normalize her fears and feelings, reinfoce helpful attitudes and perspectives and provided gentle legal counsel, prayer and a calming presence. Patient responded well and showed signs of reduced stress. Spiritual care will remain available.
--- NOTE | 2024-05-16 17:50 | NUR ---
SHIFT SUMMARY PATIENT ALERT AND INTERACTIVE. PATIENT ABLE TO MAKE NEEDS KNOWN. PATIENT ABLE TO AMBULATE TO BR WITH WALKER AND STAND BY ASSIST. PATIENT DENIES ANY PAIN AT THIS TIME. PATIENT HAS BLE EDEMA. COMPRESSION STOCKINGS IN PLACE. PATIENT SELECTIVE OF MEDICATIONS THAT SHE WAS WILLING TO TAKE. EDUCATION PROVIDED TO PATIENT ABOUT DISEASE PROCESS, MEDICATION COMPLIANCE, DIET, FLUID INTAKE, WEIGHING AND MOBILITY. PATIENT NOT VERY RECEPTIVE AND CONTINUES TO BE RELUCTANT AT WHAT MEDICATION SHE IS WILLING TO TAKE. PALLIATIVE CARE AND PASTORAL CARE WORKING WITH PATIENT. PATIENT ABLE TO AMBULATE IN BLUE WITH WALKER AND STAND BY ASSIST.
[2024-05-16 18:28] LABS: Bun/Creatinine Ratio 18.5 (12.0-20.0); Calcium, Blood 9.1 mg/dL (8.5-10.1); Creatinine, Blood 0.7 mg/dL (0.40-1.00); Potassium, Blood 3.3 mmol/L (3.5-5.5)
[2024-05-16 19:47] VITALS: BP 123/74
[2024-05-17 03:33] VITALS: BP 113/74
--- NOTE | 2024-05-17 04:21 | NUR ---
SHIFT SUMMARY PATIENT HAD NO ACUTE CHANGES. CONTINUE TO BE DIURESIS. SBA TO BSC ON 3L O2 N/C AND BASELINE. DAY RN REPORTED PATIENT FINALLY TOOK PO K+ AND IV K+ LATE IN HER SHIFT AFTER ORIGINALLY REFUSING. EPISTAXIS EVENT X TWO AND PLACED ON HUMIDIFY OXYGEN AFTER RESOLVED. PIV INTACT. TELE MONITOR ST 90, 1ST AVB,BBB. DENIES CHEST PAIN AND N/V. VSS/AFEBRILE. REPORTS BREATHING SLOWLY IMPROVING. SLEPT 2ND PART OF SHIFT. CALL LIGHT IN REACH. BED IN LOWEST POSITION. WILL CONTINUE TO MONITOR UNTIL DAY SHIFT NURSE ASSUMES CARE.
[2024-05-17 06:08] LABS: BASOPHILS ABSOLUTE AUTO 0.03 K/mm3 (0.00-0.23); BASOPHILS PERCENT AUTO 1 % (0-2); EOSINOPHILS ABSOLUTE AUTO 0.12 K/mm3 (0.00-0.68); EOSINOPHILS PERCENT AUTO 2 % (0-6); Hematocrit 39.9 % (33.0-51.0); Hemoglobin 13.1 g/dL (11.5-16.0); IMMATURE GRAN ABSOLUTE AUTO 0.01 K/mm3 (0.00-0.10); IMMATURE GRAN PERCENT AUTO 0 % (0-1); LYMPHOCYTES ABSOLUTE AUTO 0.82 K/mm3 (0.84-5.20); LYMPHOCYTES PERCENT AUTO 16 % (21-46); MONOCYTES ABSOLUTE AUTO 0.66 K/mm3 (0.16-1.47); MONOCYTES PERCENT AUTO 13 % (4-13); Mean Corpuscular HGB 32.4 pg (26.0-34.0); Mean Corpuscular HGB Conc 32.8 g/dL (31.5-36.5); Mean Corpuscular Volume 99 fL (80-100); Mean Platelet Volume 10.8 fL (9.1-12.4); NEUTROPHILS ABSOLUTE AUTO 3.35 K/mm3 (1.96-9.15); NEUTROPHILS PERCENT AUTO 67 % (41-73); Platelet Count 160 K/mm3 (150-400); RDW Coefficient Variation 13.9 % (11.7-14.2); RDW Standard Deviation 50.2 fL (35.1-46.3); Red Blood Cell Count 4.04 M/mm3 (3.80-5.20); White Blood Cell Count 4.99 K/mm3 (4.00-11.30)
[2024-05-17 06:33] LABS: Magnesium, Blood 1.8 mg/dL (1.6-2.4)
[2024-05-17 06:38] LABS: Albumin, Blood 2.3 g/dL (3.4-5.0); Albumin/Globulin Ratio 0.8 (0.8-1.8); Bilirubin, Total 1.2 mg/dL (0.1-1.0); Bun/Creatinine Ratio 17.5 (12.0-20.0); Calcium, Blood 8.8 mg/dL (8.5-10.1); Creatinine, Blood 0.63 mg/dL (0.40-1.00); Globulin, Blood 2.9 g/dL (2.2-4.0); Thyroid Stimulating Hormone 2.98 uIU/mL (0.360-4.800); Total Protein, Blood 5.2 g/dL (6.4-8.2)
[2024-05-17 07:16] VITALS: BP 121/77
--- NOTE | 2024-05-17 14:05 | NUR ---
MD NOTIFIED OF ELONGATED QTC 0.52. THIS MORNING QTC 0.48 AND LASTNIGHT AT MIDNIGHT QTC 0.46. MD STATES WILL REVIEW.
[2024-05-17 15:29] LABS: Bun/Creatinine Ratio 19.7 (12.0-20.0); Calcium, Blood 9.2 mg/dL (8.5-10.1); Creatinine, Blood 0.66 mg/dL (0.40-1.00); Potassium, Blood 3.7 mmol/L (3.5-5.5)
--- NOTE | 2024-05-17 18:52 | NUR ---
SHIFT SUMMARY PATIENT A/OX4, ABLE TO MAKE NEEDS KNOWN. PLEASANT AND COOPERATIVE WITH CARE. IV AND PO DIURETICS ADMINISTER PER AUG, DIURESING WELL. NEW PIV PLACED TO RIGHT WRIST. TELEMETRY CALLED EARLIER THIS SHIFT TO STATE QTC IS ELONGATED, MD NOTIFIED VIA TELEPHONE. TELEMETRY CALLED AGAIN THIS EVENING DURING SHIFT CHANGE STATING PATIENT HAS ST ELEVATION, MD NOTIFIED AND EKG AND TRIPONINS ORDERED. PATIENT ASYMPTOMATIC. WILL CONTINUE TO MONITOR.
[2024-05-17 19:51] VITALS: BP 121/70
--- NOTE | 2024-05-17 19:52 | NUR ---
PT NURSE REPORTED NEED FOR SAT EKG, EKG DONE AND SENT TO MD. DENIES CHEST PAIN, ALERT AND OREINTED, RESPS EVEN. CALL LIGHT IN REACH, AGREED TO USE CALL LIGHT IF HAVING PAIN
[2024-05-18 05:13] VITALS: BP 109/78
[2024-05-18 06:12] LABS: BASOPHILS ABSOLUTE AUTO 0.03 K/mm3 (0.00-0.23); BASOPHILS PERCENT AUTO 1 % (0-2); EOSINOPHILS ABSOLUTE AUTO 0.05 K/mm3 (0.00-0.68); EOSINOPHILS PERCENT AUTO 1 % (0-6); Hematocrit 41.9 % (33.0-51.0); IMMATURE GRAN ABSOLUTE AUTO 0.01 K/mm3 (0.00-0.10); IMMATURE GRAN PERCENT AUTO 0 % (0-1); LYMPHOCYTES ABSOLUTE AUTO 0.97 K/mm3 (0.84-5.20); LYMPHOCYTES PERCENT AUTO 22 % (21-46); MONOCYTES PERCENT AUTO 14 % (4-13); Mean Corpuscular HGB 32.2 pg (26.0-34.0); Mean Corpuscular HGB Conc 33.4 g/dL (31.5-36.5); Mean Corpuscular Volume 96 fL (80-100); Mean Platelet Volume 10.3 fL (9.1-12.4); NEUTROPHILS ABSOLUTE AUTO 2.77 K/mm3 (1.96-9.15); NEUTROPHILS PERCENT AUTO 63 % (41-73); Platelet Count 168 K/mm3 (150-400); RDW Coefficient Variation 13.8 % (11.7-14.2); RDW Standard Deviation 49.4 fL (35.1-46.3); Red Blood Cell Count 4.35 M/mm3 (3.80-5.20); White Blood Cell Count 4.43 K/mm3 (4.00-11.30)
[2024-05-18 06:32] LABS: Bun/Creatinine Ratio 22.9 (12.0-20.0); Calcium, Blood 9.2 mg/dL (8.5-10.1); Creatinine, Blood 0.61 mg/dL (0.40-1.00); Potassium, Blood 3.6 mmol/L (3.5-5.5)
[2024-05-18 08:01] VITALS: BP 115/75
--- NOTE | 2024-05-18 08:07 | NUR ---
SHIFT SUMMARY FOR 7P TO 7A CALL FROM SMALL WIND ENERGY INSTALLER AT ONSET OF SHIFT REPORTING PROLONGED QT AND ELEVATED ST, PT ASYMPTOMATIC, NOTIFIED,ASSISTED FROM CHAIR TO BED, 12 LEAD EKG&TROPONIN ORDERED AND DRAWN, EKG RESULTS SENT TO , TROPONIN WAS WDL, VSS, LARGE URINE OUTPUT OVER 1500ML& CL YELL (PUREWICK), LATER IN SHIFT BUS DRIVER SUPERVISOR CALLED TO REPORT ALTERNATING BBB. A.M. LABS ORDERED. NSR WITH INTERMITTENT PVCs/PACs,BBB SLEPT WELL OVERNIGHT ,LEs ELAEATED DUR TO EDEMA 2 TO 3+ IN LOWER LEGS& PEDAL. DENIED ANY PAIN IN CHEST OR ELSEWHERE. REPORTS SLEPT VERY WELL OVERNIGHT.
[2024-05-18 15:13] VITALS: BP 124/76
--- NOTE | 2024-05-18 18:26 | NUR ---
SHIFT SUMMARY PATIENT A/OX4, ABLE TO MAKE NEEDS KNOWN. PLEASANT AND COOPERATIVE WITH CARE. STRICT I/Os. CONTINUES WITH TELEMETRY MONITORING, TELEMETRY CALLED THIS AFTERNOON TO NOTIFY OF PATIENT ELONGATED QTC. MD AWARE AND STATES TO CONTINUE TO MONITOR. 2+ EDEMA TO BLE, IMPROVEMENT FROM YESTERDAY. 3LPM CHRONIC OXYGEN USE VIA NASAL CANNULA. PATIENT ABLE TO AMBULATE 400 FT IN HALLWAY WITH STAFF ASSISTANCE TWICE THIS SHIFT. DYSPNEA WITH EXERTION, BUT TOELRATED WELL. PATIENT COMPLAINING OF LETHARGY. NEW PIC PLACED TO LEFT FA VIA ULTRASOUND. NO OTHER CONCERNS AT THIS TIME.
[2024-05-18 20:07] VITALS: BP 105/76
--- NOTE | 2024-05-18 20:42 | NUR ---
@HS, SON MARCELLA BY THE BEDSIDE. BOTH THE PT, AND SON WOULD LIKE TO TALK TO THE DR SOON POSSIBLE AND CHANGE THE PT'S CODE STATUS FROM DNR TO FULL CODE. WILL PASS THIS INFORMATION/REQUEST TO DAY SHIFT.
--- NOTE | 2024-05-19 03:21 | NUR ---
SHIFT SUMMARY @HS PT'S SON MARCELLA BY THE BEDSIDE. CONTINUING PT EDUCATION FOR THE PT AND FAMILY. PER PT: WANTS TO CHANGE CODE STATUS BACK TO FULL CODE FROM DNR. THIS SPOOLER EXPLAINED THE PT AND SON, THAT NEEDS TO BE COMPLETED BY THE DR. WILL PASS THIS INFORMATION TO THE INCOMING RN. PT CONTINUES ON 3L VIA NASAL CANNULA, SAT'S> 98%. PT DENIES SOB AND DISCOMFORT. PT UP IN THE CHAIR, ABLE TO TRANSFER TO BED INDEPENDENTLY. LE EDEMA +3, REMOVED NILSA HOSE AT HS. ELEVATED LE'S WITH PILLOWS. AT MIDNIGHT PT C/O LOUD NOISES ON HALLWAYS, THIS SPOOLER APOLOGISED AND EXPLAINED THE NOISES FROM A NEW ADMIT. FEMALE PUREWICK DRAINING TEA COLOR URINE. TELE: SR @87, NO EVENTS DURING THIS SHIFT. BED AT THE LOWEST POSITION, CALL LIGHT WITHIN REACH.
[2024-05-19 04:59] LABS: BASOPHILS ABSOLUTE AUTO 0.03 K/mm3 (0.00-0.23); BASOPHILS PERCENT AUTO 1 % (0-2); EOSINOPHILS ABSOLUTE AUTO 0.13 K/mm3 (0.00-0.68); EOSINOPHILS PERCENT AUTO 3 % (0-6); Hematocrit 40.2 % (33.0-51.0); Hemoglobin 13.2 g/dL (11.5-16.0); IMMATURE GRAN ABSOLUTE AUTO 0.01 K/mm3 (0.00-0.10); IMMATURE GRAN PERCENT AUTO 0 % (0-1); LYMPHOCYTES ABSOLUTE AUTO 0.91 K/mm3 (0.84-5.20); LYMPHOCYTES PERCENT AUTO 23 % (21-46); MONOCYTES ABSOLUTE AUTO 0.61 K/mm3 (0.16-1.47); MONOCYTES PERCENT AUTO 16 % (4-13); Mean Corpuscular HGB 31.6 pg (26.0-34.0); Mean Corpuscular HGB Conc 32.8 g/dL (31.5-36.5); Mean Corpuscular Volume 96 fL (80-100); Mean Platelet Volume 10.4 fL (9.1-12.4); NEUTROPHILS ABSOLUTE AUTO 2.23 K/mm3 (1.96-9.15); NEUTROPHILS PERCENT AUTO 57 % (41-73); Platelet Count 173 K/mm3 (150-400); RDW Coefficient Variation 13.9 % (11.7-14.2); RDW Standard Deviation 49.2 fL (35.1-46.3); Red Blood Cell Count 4.18 M/mm3 (3.80-5.20); White Blood Cell Count 3.92 K/mm3 (4.00-11.30)
[2024-05-19 05:25] LABS: Bun/Creatinine Ratio 26.5 (12.0-20.0); Calcium, Blood 9.6 mg/dL (8.5-10.1); Creatinine, Blood 0.6 mg/dL (0.40-1.00); Potassium, Blood 3.5 mmol/L (3.5-5.5)
[2024-05-19 07:56] VITALS: BP 125/91
[2024-05-19] MEDS ORDERED: Multivitamins 1 Tab PO SCH (09:00)
[2024-05-19] MEDS ORDERED: Bisacodyl 10 MG Supp PR PRN (14:45)
[2024-05-19] MEDS ORDERED: Polyethylene Glycol 3350 17 gm PO PRN (14:45)
[2024-05-19 14:59] VITALS: BP 120/69
--- NOTE | 2024-05-19 17:54 | NUR ---
SHIFT SUMMARY PATIENT A/OX4, ABLE TO MAKE NEEDS KNOWN. PLEASANT AND COOPERTIVE WITH CARE. PATIENT COMPLAINING OF LETHARGY TODAY, SHE STATES RELATED TO BUMEX ADMINISTRATION. ALSO COMPLAINING OF "ITCHINESS" TO BLE, SMALL SELF INFLICTED SCRATCH DUMONT NOTED TO BILATERAL ANKLES. LOTION APPLIED. PATIENT DISCUSSED WITH DR. FAM HER WISH TO BE A FULL CODE, NEW POST FORM IN PAPER CHART AND DNR BRACELET REMOVED FROM PATIENT. BOWEL MEDS REQUESTED PER PATIENT REQUEST, NOW HAS PRN AND SCHEDULED BOWEL MEDS. TELEMETRY IN PLACE, NO EVENTS NOTED THIS SHIFT. NO OTHER CONCERNS AT THIS TIME.
--- NOTE | 2024-05-19 18:22 | NUR ---
TELEMETRY CALLED TO INFORM PATIENT WITH ST ELEVATION. EKG OBTAINED AND IN PAPER CHART. MD NOTIFIED VIA TELEPHONE, NO NEW ORDERS AT THIS TIME. PATIENT ASYMPTOMATIC. PATIENT HAS HX OF SIMILAR EPISODES THIS HOSPITALIZATION.
[2024-05-19 20:22] VITALS: BP 109/68
[2024-05-19] MEDS ORDERED: Docusate Sodium 100 MG Cap PO SCH (21:00)
[2024-05-20 01:21] VITALS: BP 113/76
--- NOTE | 2024-05-20 03:30 | NUR ---
SHIFT SUMMARY PT IS A&O X4, ABLE TO MAKE HER NEEDS KNOWN. AT HS, LAYING IN BED, HAS QUESTIONS R/T HEART FAILURE. CONTINUING PT EDUCATION. PT REPORTS A RASH AFTER RECEIVING BUMEX EARLIER DURING DAYSHIFT. PT REPORTS RASH HAS RESOLVED. TELE: TRIGEMINAL PVC'S- ON-CALL HOSPITALIST AND BENEFITS CONSULTING ANALYST NOTIFIED. NO NEW ORDERS AT THIS TIME. PT REMAINS ASYMPTOMATIC. LE'S ELEVATED IN BED, EDEMA +2 BILATERALLY. PT DENIES PAIN AND DISCOMFORT. PUREWICK WORKING WELL, LIGHT YELLOW COLOR URINE, >1L DURING THIS SHIFT. PT AWAKE UNTIL EARLY AM HRS. BED AT THE LOWEST POSITION, CALL LIGHT WITHIN REACH.
[2024-05-20 05:23] LABS: BASOPHILS ABSOLUTE AUTO 0.05 K/mm3 (0.00-0.23); BASOPHILS PERCENT AUTO 1 % (0-2); EOSINOPHILS ABSOLUTE AUTO 0.18 K/mm3 (0.00-0.68); EOSINOPHILS PERCENT AUTO 4 % (0-6); Hemoglobin 14.1 g/dL (11.5-16.0); IMMATURE GRAN ABSOLUTE AUTO 0.01 K/mm3 (0.00-0.10); IMMATURE GRAN PERCENT AUTO 0 % (0-1); LYMPHOCYTES ABSOLUTE AUTO 1.04 K/mm3 (0.84-5.20); LYMPHOCYTES PERCENT AUTO 24 % (21-46); MONOCYTES ABSOLUTE AUTO 0.71 K/mm3 (0.16-1.47); MONOCYTES PERCENT AUTO 17 % (4-13); Mean Corpuscular HGB Conc 32.8 g/dL (31.5-36.5); Mean Corpuscular Volume 98 fL (80-100); Mean Platelet Volume 10.6 fL (9.1-12.4); NEUTROPHILS ABSOLUTE AUTO 2.28 K/mm3 (1.96-9.15); NEUTROPHILS PERCENT AUTO 53 % (41-73); Platelet Count 191 K/mm3 (150-400); RDW Coefficient Variation 13.8 % (11.7-14.2); RDW Standard Deviation 49.7 fL (35.1-46.3); White Blood Cell Count 4.27 K/mm3 (4.00-11.30)
[2024-05-20 06:25] LABS: Bun/Creatinine Ratio 24.7 (12.0-20.0); Calcium, Blood 10.2 mg/dL (8.5-10.1); Creatinine, Blood 0.65 mg/dL (0.40-1.00); Potassium, Blood 3.7 mmol/L (3.5-5.5)
[2024-05-20 07:23] VITALS: BP 116/79
[2024-05-20] MEDS ORDERED: Bumetanide 1 MG Tab PO SCH (13:20)
[2024-05-20 13:21] VITALS: BP 119/61
[2024-05-20 14:48] VITALS: BP 113/74
[2024-05-20] MEDS ORDERED: Ondansetron 4 MG SoluTab MM PRN (16:30)
--- NOTE | 2024-05-20 16:33 | NUR ---
CALLED DR MOSS- PT RECIEVED PO DOSE OF BUMEX, AWARE VS STABLE, PT DENIES ANY DIZZINESS SHE HAD A SLIGHT TICKLE IN HER THROAT (PT STATES) THAT CAUSED HER TO VOMIT A LITTLE, PT DENIES ANY NAUSEA, AND STATES SHE ACTUALLY FEELS VERY CLEAR HEADED. DR MARTINEZ PRN ORDER FOR ZOFRAN IF THE PT BECOMES NAUSEOUS AGAIN.
[2024-05-20] MEDS ORDERED: Magnesium Oxide 400 MG Tab PO SCH (17:25)
--- NOTE | 2024-05-20 18:36 | NUR ---
SHIFT SUMMARY- PT HAS HAD NO ACUTE CHANGE T/O THE DAY, SE HAS BEEN INDEPENDENT IN THE ROOM TO THE BSC AND THE BATHROOM. PT VOIDS FREQUENTLY WITH SMALL AMOUNTS (100-150ML) AT A TIME. PT CALLS APPROPRIATELY. CURRENTLY SHE IS SITTING AT THE EOB WITH HER CALL LIGHT IN REACH, SHE IS TALKING IN THE PHONE. PT DID HAVE AN EPISODE OF EMESIS THIS AFTERNOON, SEE PREV NOTE FOR DETAILS. NO CURRENT S&S OF DISTRESS NOTED.
[2024-05-20 19:44] VITALS: BP 112/79
[2024-05-21 01:19] VITALS: BP 98/72
--- NOTE | 2024-05-21 03:15 | NUR ---
SHIFT SUMMARY NO ACUTE EVENTS DURING THIS SHIFT. CONTINUING PT EDUCATION. PT DENIES PAIN AND DISCOMFORT. PT REVISITS THE EVENT OF "LASIX AND BUMEX CAUSING ALLERGIC REACTION/RASH AND ITCHING," PER PT REPORT. PT REPORTS THAT SHE WOULD LIKE TO STAY ANOTHER NIGHT AT THE HOSPITAL AND "GET THE LEG SWELLING DOWN" BEFORE DISCHARGING . TELE: SR @86 WITH 1ST DEGREE HB, AND BBB. O2 SAT'S>95% ON 3L VIA NASAL CANNULA. PT HAD A SMALL NOSE BLEED DURING HS. RESOLVED QUICKLY. BED AT THE LOWEST POSITION, CALL LIGHT WITHIN REACH. PT AWAKE UNTIL 1-2 AM, INDEPENDENT WITHIN THE HOSPITAL ROOM, AMBULATES INDEPENDENTLY TO THE RESTROOM. REFUSED HS SCHEDULED DUCOLAX.
[2024-05-21 05:43] LABS: Albumin, Blood 2.7 g/dL (3.4-5.0); Albumin/Globulin Ratio 0.9 (0.8-1.8); Bilirubin, Total 0.8 mg/dL (0.1-1.0); Bun/Creatinine Ratio 24.1 (12.0-20.0); Calcium, Blood 9.8 mg/dL (8.5-10.1); Creatinine, Blood 0.66 mg/dL (0.40-1.00); Globulin, Blood 3.1 g/dL (2.2-4.0); Potassium, Blood 3.4 mmol/L (3.5-5.5); Total Protein, Blood 5.8 g/dL (6.4-8.2)
[2024-05-21 07:37] VITALS: BP 117/86
[2024-05-21] MEDS ORDERED: Magnesium Oxide 400 MG Tab PO SCH (09:00)
--- NOTE | 2024-05-21 17:01 | NUR ---
SHIFT SUMMARY PT AO4, COOPERATIVE. ABLE TO MAKE NEEDS KNOWN. PT DOES SEEM HESITANT TO TAKE PO MEDS, WANTS TO GO THE HOMEOPATHIC ROUTE. PT ON 2 L O2 CURRENTLY. IND IN ROOM. COMPLAINTS OF NAUSEA THROUGHOUT THE DAY. SHOULD BE DISCHARGING TOMORROW. BED IN LOWEST POSITION, CALL LIGHT WITHIN REACH.
[2024-05-21 20:19] VITALS: BP 107/73
--- NOTE | 2024-05-21 22:57 | NUR ---
@2597 THIS MALTED MILK MASHER RETURNED A PHONE CALL TO PT'S SON MARCELLA. PER MARCELLA: "MY MOM IS KIND OF NERVOUS GOING HOME TOMORROW, SHE WOULD LIKE TO STAY AT THE HOSPITAL ANOTHER DAY." PT ALSO HESITANT WHEN DISCUSSING D/C PLANS FOR TOMORROW. PT STATES WOULD LIKE TO STAY ANOTHER DAY " TO GET THIS FLUID OFF OF MY LEGS". WILL PASS THIS INFORMATION TO NORM RN/ DAYSHIFT NURSE. WILL NOTIFY TECHNOLOGY AUDITOR WHEN GIVING UPDATES/SHIFT REPORT TO [facility].
[2024-05-22] MEDS ORDERED: Melatonin 3 MG Tab PO ONE (00:50)
[2024-05-22] MEDS ORDERED: Melatonin 3 MG Tab PO PRN (00:50)
--- NOTE | 2024-05-22 01:03 | NUR ---
NEW T-ORDER RECEIVED FROM THE ON-CALL HOSPITALIST : MELATONIN 3MG PO QHS PRN. AND MELATONIN 3MG PO NOW. ENTERED TO [employer], SEE EMAR. NO ADDITIONAL NEW ORDERS AT THIS TIME.
[2024-05-22 01:11] VITALS: BP 115/69
[2024-05-22 05:33] LABS: Albumin, Blood 2.8 g/dL (3.4-5.0); Albumin/Globulin Ratio 0.9 (0.8-1.8); Bilirubin, Total 0.8 mg/dL (0.1-1.0); Bun/Creatinine Ratio 24.5 (12.0-20.0); Calcium, Blood 10.1 mg/dL (8.5-10.1); Creatinine, Blood 0.77 mg/dL (0.40-1.00); Globulin, Blood 3.1 g/dL (2.2-4.0); Potassium, Blood 3.9 mmol/L (3.5-5.5); Total Protein, Blood 5.9 g/dL (6.4-8.2)
--- NOTE | 2024-05-22 05:37 | NUR ---
SHIFT SUMMARY PT STATES THAT DOES NOT WANT TO DISCHARGE TODAY. THIS SALES AND MARKETING SPECIALIST RECEIVED A PHONE CALL FROM PT'S SON MARCELLA. SON STATES THAT PT WOULD LIKE TO STAY AT THE HOSPITAL ONE MORE NIGHT. PT C/O LOUD NOISES AND STATES "BUMEX POSSIBLY CAUSING INSOMNIA FOR THE THIRD NIGHT IN A ROW". PT REQUESTED A "MILD SEDATIVE". THIS SALES AND MARKETING SPECIALIST CALLED ON-CALL HOSPITALIST. NEW ORDER FOR PO MELATONIN 3MG QHS RECEIVED. PT AGREEABLE TO TAKE MELATONIN AROUND 0000. PT C/O SWELLING IN LEGS. ELEVATED WITH HOSPITAL BED. PT REFUSED ELEVATION WITH PILLOWS. PT REFUSED HS SCHEDULED DOCUSATE. NO ACUTE EVENTS DURING THIS SHIFT. PT IS ABLE TO MAKE HER NEEDS KNOWN. BED AT THE LOWEST POSITION, CALL LIGHT WITHIN REACH. PT AMBULATES INDEPENDENTLY WITHIN THE HOSPITAL ROOM. DENIES PAIN. O2 @2L VIA NASAL CANNULA, SAT'S >97%.
[2024-05-22 07:33] VITALS: BP 110/75
[2024-05-22] MEDS ORDERED: Bumetanide 1 MG Tab PO SCH (09:00)
[2024-05-22 16:15] VITALS: BP 110/71
--- NOTE | 2024-05-22 16:37 | NUR ---
Pt. is awake in bed and welcomed my visit. Pt. is unsettled about her condition and verbalized that she would life some prune juice. Listened with empathy and a calming presence. This chaplainhas seen this Pt. before so rapportis re-established. Pt. verbalized that she was tired but would like prayer. Prayed with the Pt. Pt. verbalized gratitude for the spiritual care visit.
[2024-05-22 17:54] LABS: BASOPHILS ABSOLUTE AUTO 0.04 K/mm3 (0.00-0.23); BASOPHILS PERCENT AUTO 1 % (0-2); EOSINOPHILS ABSOLUTE AUTO 0.05 K/mm3 (0.00-0.68); EOSINOPHILS PERCENT AUTO 1 % (0-6); Hematocrit 42.7 % (33.0-51.0); Hemoglobin 13.7 g/dL (11.5-16.0); IMMATURE GRAN ABSOLUTE AUTO 0.01 K/mm3 (0.00-0.10); IMMATURE GRAN PERCENT AUTO 0 % (0-1); LYMPHOCYTES ABSOLUTE AUTO 0.95 K/mm3 (0.84-5.20); LYMPHOCYTES PERCENT AUTO 20 % (21-46); MONOCYTES ABSOLUTE AUTO 0.72 K/mm3 (0.16-1.47); MONOCYTES PERCENT AUTO 15 % (4-13); Mean Corpuscular HGB 31.7 pg (26.0-34.0); Mean Corpuscular HGB Conc 32.1 g/dL (31.5-36.5); Mean Corpuscular Volume 99 fL (80-100); Mean Platelet Volume 10.6 fL (9.1-12.4); NEUTROPHILS ABSOLUTE AUTO 3.09 K/mm3 (1.96-9.15); NEUTROPHILS PERCENT AUTO 64 % (41-73); Platelet Count 181 K/mm3 (150-400); RDW Coefficient Variation 13.7 % (11.7-14.2); RDW Standard Deviation 50.2 fL (35.1-46.3); Red Blood Cell Count 4.32 M/mm3 (3.80-5.20); White Blood Cell Count 4.86 K/mm3 (4.00-11.30)
--- NOTE | 2024-05-22 19:37 | NUR ---
SHIFT SUMMARY- PT HAS HAD NO ACUTE CHANGES T/O THE DAY. SHE REMAINS INDEPENDENT IN THE ROOM. SHE AMBULATED IN THE HALLS TODAY WITH STAFF ASSIST TO TRANSPORT THE O2. PT HAD A C/O CONSTIPATION THIS EVENING. THIS RN OFFERED HER LAXITIVES EACH MORNING SHE MENTIONED HER BOWELS "MIGHT BE HAVING TROUBLE" THE PT REFUSED TO TAKE MIRALAX, AND ALSO DECLINED THE EVENING DOSE OF STOOL SOFTENER. THIS AFTERNOON SHE C/O CONSTIPATION AND THE PT AGAIN DECLINED THE MIRALAX AND ASKED FOR PRUNE JUICE. SHE RECIEVED PRUNE JUICE. PT WAS IN THE BATHROOM AT THE TIME OF REPORT, ATTEMPTING TO HAVE A BM. NIGHT RN AWARE.
[2024-05-22 19:53] VITALS: BP 115/80
[2024-05-23 03:16] VITALS: BP 122/81
--- NOTE | 2024-05-23 03:51 | NUR ---
SHIFT SUMMARY NO ACUTE CHANGES OR EVENTS DURING THIS SHIFT. PT CONTINUES TO REFUSE HS COLACE. UP TO THE RESTROOM INDEPENDENTLY T/O THIS SHIFT. PT USING FWW. PT WEARING ATTENDS. O2 @2L VIA NASAL CANNULA. SAT'S 100%. NO COUGH NOTED. SON VISITED AT HS. TELE: SR @83 WITH 1ST DEGREE HB AND BBB. PT DENIES PAIN/RESSURE/SOB. BED AT THE LOWEST POSITION, CALL LIGHT WITHIN REACH. UNSURE OF THE PT'S REPORT OF CONSTIPATION-OFFERED BOWEL MEDS- REFUFSED.
[2024-05-23 07:22] VITALS: BP 104/71
[2024-05-23] MEDS ORDERED: Bumetanide 1 MG Tab PO SCH (09:00)
[2024-05-23 09:48] VITALS: BP 112/71
[2024-05-23] MEDS ORDERED: Bumetanide 0.25 MG/ML 4ML ViaL IV ONE (12:00)
[2024-05-23 15:11] VITALS: BP 106/70
[2024-05-23] MEDS ORDERED: N-Acetylcysteine 600 MG CAP PO SCH (21:00)
[2024-05-23 21:08] VITALS: BP 110/76
[2024-05-24 03:18] VITALS: BP 108/78
[2024-05-24 05:54] LABS: BASOPHILS ABSOLUTE AUTO 0.03 K/mm3 (0.00-0.23); BASOPHILS PERCENT AUTO 1 % (0-2); EOSINOPHILS ABSOLUTE AUTO 0.05 K/mm3 (0.00-0.68); EOSINOPHILS PERCENT AUTO 1 % (0-6); Hematocrit 40.4 % (33.0-51.0); Hemoglobin 13.2 g/dL (11.5-16.0); IMMATURE GRAN ABSOLUTE AUTO 0.02 K/mm3 (0.00-0.10); IMMATURE GRAN PERCENT AUTO 0 % (0-1); LYMPHOCYTES ABSOLUTE AUTO 0.85 K/mm3 (0.84-5.20); LYMPHOCYTES PERCENT AUTO 18 % (21-46); MONOCYTES ABSOLUTE AUTO 0.74 K/mm3 (0.16-1.47); MONOCYTES PERCENT AUTO 15 % (4-13); Mean Corpuscular HGB Conc 32.7 g/dL (31.5-36.5); Mean Corpuscular Volume 98 fL (80-100); NEUTROPHILS ABSOLUTE AUTO 3.15 K/mm3 (1.96-9.15); NEUTROPHILS PERCENT AUTO 65 % (41-73); Platelet Count 181 K/mm3 (150-400); RDW Coefficient Variation 13.8 % (11.7-14.2); RDW Standard Deviation 49.6 fL (35.1-46.3); Red Blood Cell Count 4.12 M/mm3 (3.80-5.20); White Blood Cell Count 4.84 K/mm3 (4.00-11.30)
--- NOTE | 2024-05-24 06:00 | NUR ---
Pt slept intermitently, tele on NSR with BBB and 1st degree block. Pt remains on O2 2L, has 3+ pitting edema in bilateral legs to mid thigh. Pt stated she was constipated, miralax administered. Pt has intermitent forgetfullness. Pt to discharge to home with HH.
[2024-05-24 06:40] LABS: Albumin/Globulin Ratio 0.9 (0.8-1.8); Bun/Creatinine Ratio 27.8 (12.0-20.0); Calcium, Blood 9.7 mg/dL (8.5-10.1); Creatinine, Blood 0.72 mg/dL (0.40-1.00); Globulin, Blood 3.2 g/dL (2.2-4.0); Potassium, Blood 3.5 mmol/L (3.5-5.5); Total Protein, Blood 6.2 g/dL (6.4-8.2)
[2024-05-24 08:08] VITALS: BP 118/75
[2024-05-24 16:10] VITALS: BP 116/80
[2024-05-24] MEDS ORDERED: Bumetanide 0.25 MG/ML 4ML ViaL IV SCH (18:00)
--- NOTE | 2024-05-24 18:06 | NUR ---
SHIFT SUMMARY PT A&Ox4, CALLS AND COMMUNICATES NEEDS APPROPRIATELY. BP STABLE, SINUS 80's w/ BBB & PVCs, DENIES CP/PRESSURE. ONE 7 BEAT RUN OF V-TACH, ASYMPTOMATIC. SpO2> 92% 2-3L VIA NC, REPORTS MILD SOB WITH ACTIVITY. BLE REMAIN EDEMATOUS UP TO THIGHS, DIURESING PER EMAR. NO C/O PAIN. NO OTHER EVENTS, WILL REPORT TO ONCOMING RN.
[2024-05-24 19:58] VITALS: BP 119/80
[2024-05-25 03:41] VITALS: BP 112/75
[2024-05-25 06:45] LABS: BASOPHILS ABSOLUTE AUTO 0.04 K/mm3 (0.00-0.23); BASOPHILS PERCENT AUTO 1 % (0-2); EOSINOPHILS ABSOLUTE AUTO 0.12 K/mm3 (0.00-0.68); EOSINOPHILS PERCENT AUTO 3 % (0-6); Hematocrit 40.9 % (33.0-51.0); Hemoglobin 13.6 g/dL (11.5-16.0); IMMATURE GRAN ABSOLUTE AUTO 0.02 K/mm3 (0.00-0.10); IMMATURE GRAN PERCENT AUTO 0 % (0-1); LYMPHOCYTES ABSOLUTE AUTO 1.17 K/mm3 (0.84-5.20); LYMPHOCYTES PERCENT AUTO 26 % (21-46); MONOCYTES PERCENT AUTO 15 % (4-13); Mean Corpuscular HGB Conc 33.3 g/dL (31.5-36.5); Mean Corpuscular Volume 99 fL (80-100); Mean Platelet Volume 11.4 fL (9.1-12.4); NEUTROPHILS ABSOLUTE AUTO 2.51 K/mm3 (1.96-9.15); NEUTROPHILS PERCENT AUTO 55 % (41-73); Platelet Count 181 K/mm3 (150-400); RDW Coefficient Variation 13.9 % (11.7-14.2); RDW Standard Deviation 49.4 fL (35.1-46.3); Red Blood Cell Count 4.12 M/mm3 (3.80-5.20); White Blood Cell Count 4.56 K/mm3 (4.00-11.30)
[2024-05-25 07:20] VITALS: BP 92/77
[2024-05-25 07:30] LABS: Albumin, Blood 3.1 g/dL (3.4-5.0); Albumin/Globulin Ratio 0.9 (0.8-1.8); Bilirubin, Total 1.1 mg/dL (0.1-1.0); Bun/Creatinine Ratio 33.3 (12.0-20.0); Calcium, Blood 9.4 mg/dL (8.5-10.1); Creatinine, Blood 0.57 mg/dL (0.40-1.00); Globulin, Blood 3.3 g/dL (2.2-4.0); Potassium, Blood 3.3 mmol/L (3.5-5.5); Total Protein, Blood 6.4 g/dL (6.4-8.2)
[2024-05-25 16:26] VITALS: BP 115/83
--- NOTE | 2024-05-25 18:43 | NUR ---
SHIFT SUMMARY PATIENT AMBULATING IN ROOM AND IN BLUE THIS SHIFT. ACCEPTING OF MEDICATIONS PRESCRIBED. A/O X4. MAINTAINING FR WITHIN LIMITS. VOIDING WELL. ABLE TO MAKE NEEDS KNOWN. CALL LIGHT IN REACH. CARES ONGOING.
[2024-05-25 20:09] VITALS: BP 103/66
[2024-05-26 03:48] VITALS: BP 112/71
--- NOTE | 2024-05-26 06:01 | NUR ---
SHIFT SUMMARY: Pt admitted for CHF exacerbation and is a full code. Is alert and able to make needs known. ADLs have been SBA. denies pain or discomfort when asked. Telly reports sinus in the 80s with a 1 deg, PVCs and bundle branch. Had a 5 beat run vtac.
[2024-05-26 07:30] VITALS: BP 114/76
[2024-05-26 10:25] VITALS: BP 117/75
[2024-05-26] MEDS ORDERED: Potassium Chloride 20 MEQ TabCR PO ONE (11:00)
[2024-05-26 11:15] LABS: Magnesium, Blood 2.2 mg/dL (1.6-2.4); Phosphorus, Blood 2.6 mg/dL (2.5-4.9)
--- NOTE | 2024-05-26 11:39 | NUR ---
CALL FROM TELE REGARDING ARRYTHMIA AT 1000. EKG PERFORMED. VITALS TAKEN AND WNL. PATIENT REPORTING FEELING SOB, FEELING HEAVY AND EXHAUSTED ALL OF A SUDDEN. IN BED LYING WITH HEAD ELEVATED AT THIS TIME, OXYGEN 2 LITERS NC. NO FINDINGS ON NURSING ASSESSMENT MINUS BILAT LOWER EDEMA AND DIMINISHED LUNG SOUNDS BILAT BASES. CALLED DR BENTON WITH THIS INFORMATION. RELAYED THAT THE EKG INTERRPRETATION READ DIFFERENTLY THAN PREVIOUS, PATIENT'S REPORTED SYMPTOMS AND VITALS. ORDERED MAG AND PHOS LABS, ORDERED 80 MEQ K PO ONCE. OKAYED TO GIVE MORNING MEDS ORDERED. PATIENT CONTINUES TO REPORT FEELING HEAVY AND STATED SHE FEELS LIKE SHE HAS A CHEST COLD.
[2024-05-26 15:57] VITALS: BP 122/76
[2024-05-26] MEDS ORDERED: Carvedilol 3.125 MG Tab PO SCH (17:00)
--- NOTE | 2024-05-26 19:14 | NUR ---
SHIFT SUMMARY PATIENT AMBULATING IN ROOM THROUGHOUT SHIFT. COMPRESSION STOCKINGS ON IN AM. DECLINING COREG THIS PM, EDUCATED, VERBALIZED UNDERSTANDING. A/OX4. DIURESING WELL. BM THIS SHIFT. CALL LIGHT IN REACH, CARES ONGOING
[2024-05-26 20:47] VITALS: BP 109/81
[2024-05-26] MEDS ORDERED: Sacubitril/Valsartan 24 MG-26 MG Tab PO SCH (21:00)
[2024-05-27 06:14] VITALS: BP 109/86
[2024-05-27 07:11] VITALS: BP 111/77
--- NOTE | 2024-05-27 07:24 | NUR ---
SHIFT SUMMARY: Pt admitted for CHF exacerbation and is a full code. Is alert and able to make needs known. ADLs have been SBA. denies pain or discomfort when asked. Telly reports sinus in the 80s
[2024-05-27 08:33] LABS: BASOPHILS ABSOLUTE AUTO 0.04 K/mm3 (0.00-0.23); BASOPHILS PERCENT AUTO 1 % (0-2); EOSINOPHILS ABSOLUTE AUTO 0.06 K/mm3 (0.00-0.68); EOSINOPHILS PERCENT AUTO 1 % (0-6); Hematocrit 41.2 % (33.0-51.0); Hemoglobin 13.5 g/dL (11.5-16.0); IMMATURE GRAN ABSOLUTE AUTO 0.01 K/mm3 (0.00-0.10); IMMATURE GRAN PERCENT AUTO 0 % (0-1); LYMPHOCYTES PERCENT AUTO 18 % (21-46); MONOCYTES ABSOLUTE AUTO 0.72 K/mm3 (0.16-1.47); MONOCYTES PERCENT AUTO 15 % (4-13); Mean Corpuscular HGB 32.2 pg (26.0-34.0); Mean Corpuscular HGB Conc 32.8 g/dL (31.5-36.5); Mean Corpuscular Volume 98 fL (80-100); Mean Platelet Volume 10.9 fL (9.1-12.4); NEUTROPHILS ABSOLUTE AUTO 3.19 K/mm3 (1.96-9.15); NEUTROPHILS PERCENT AUTO 65 % (41-73); Platelet Count 190 K/mm3 (150-400); RDW Coefficient Variation 14.1 % (11.7-14.2); RDW Standard Deviation 49.8 fL (35.1-46.3); Red Blood Cell Count 4.19 M/mm3 (3.80-5.20); White Blood Cell Count 4.92 K/mm3 (4.00-11.30)
[2024-05-27 08:52] LABS: Bun/Creatinine Ratio 30.9 (12.0-20.0); Calcium, Blood 9.6 mg/dL (8.5-10.1); Creatinine, Blood 0.62 mg/dL (0.40-1.00); Magnesium, Blood 2.1 mg/dL (1.6-2.4); Potassium, Blood 3.6 mmol/L (3.5-5.5)
[2024-05-27] MEDS ORDERED: Misc. Tablet PO SCH (09:00)
[2024-05-27] MEDS ORDERED: Empagliflozin 10 MG TAB PO SCH (09:00)
[2024-05-27] MEDS ORDERED: BUME2 PO (14:22)
--- NOTE | 2024-05-27 15:08 | NUR ---
Patient is sitting on a chair and alert. Patient tells me about her jehovah's witness beliefs and the pressure she feels to go against those beliefs to take certain medicine. She tells me that if she does not take the medications needed for the next 3-6 mos then the surgeon will not perform the surgery on her heart that she knows she needs. She feels as she is being sent home because she needs to decide what direction to go (taking the medication and have the surgery or not to take the medications and possiblely face irreversible consequences, as she sees it) Patient is very conflicted by the medical decisions that she must make. I provide therapeutic listening, gentle residence counselor on risk verses benefit, and prayer. The patient responded well and showed signs of greater peace but aliyah no concise conclusions about her what she might do. Spiritual care will remain available.
--- NOTE | 2024-05-27 16:41 | NUR ---
DISCHARGE SUMMARY: PT DISCHARGED HOME TODAY. SPOUSE HERE TO TAKE HER HOME. PT EDUCATED ON DISCHARGE MEDICATIONS AND INSTRUCTIONS. PT V/U. PT ASSISTED WITH PACKING BELONGINGS. PT ESCORTED TO POV VIA WHEELCHAIR AND ON 3 LPM VIA NC. PT HOOKED UP TO HER PORTABLE O2 IN THE CAR. PT HAD FWW WITH HER THAT WAS DELIVERED TO THE HOSPITAL.
== END 2024-05-27 15:45 | disposition home health service (06) | DRG 291 ==
LOC: ER 14:37 → MEDS 20:15 → ERHOLD 20:15 → MEDS 22:10
PROVIDERS: Emergency Medicine; Family Medicine; Hospitalist; Internal Medicine; Nurse Practitioner Acute Care; Physician Assistant; Student in an Organized Health Care Education/Training Program; ADMIT Internal Medicine
DX: I11.0 Hypertensive heart disease with heart failure (principal); I50.21 Acute systolic (congestive) heart failure; J18.9 Pneumonia, unspecified organism; Z66 Do not resuscitate; Z28.21 Immunization not carried out because of patient refusal; E78.5 Hyperlipidemia, unspecified; I35.1 Nonrheumatic aortic (valve) insufficiency; Z79.899 Other long term (current) drug therapy; E87.6 Hypokalemia; K59.00 Constipation, unspecified; M79.606 Pain in leg, unspecified; I49.3 Ventricular premature depolarization; R11.10 Vomiting, unspecified; Z91.148 Patient's other noncompliance with medication regimen for other reason
CPT/HCPCS: 0241U; 36415; 71046; 74018; 80048; 80053; 83735; 83880; 84100; 84443; 84484; 85025; 93005; 93010; 93306; 94640; 94664; 94760; 94762; 96374; 99285-25; A9270; J1650; J3480

== ENCOUNTER 2025-04-13 05:30 | Inpatient (IN) | payer MEDICARE ==
[~2025-04-13] VITALS: Ht 167.6 cm; Wt 73.6 kg
[~2025-04-13 05:30] MED LIST changes: +BUME2 PO; +CO Q-10100 MG PO
[2025-04-13 05:50] LABS: BASOPHILS ABSOLUTE AUTO 0.03 K/mm3 (0.00-0.23); BASOPHILS PERCENT AUTO 1 % (0-2); EOSINOPHILS ABSOLUTE AUTO 0.06 K/mm3 (0.00-0.68); EOSINOPHILS PERCENT AUTO 1 % (0-6); Hematocrit 36.5 % (33.0-51.0); Hemoglobin 12.2 g/dL (11.5-16.0); IMMATURE GRAN ABSOLUTE AUTO 0.03 K/mm3 (0.00-0.10); IMMATURE GRAN PERCENT AUTO 1 % (0-1); LYMPHOCYTES ABSOLUTE AUTO 0.88 K/mm3 (0.84-5.20); LYMPHOCYTES PERCENT AUTO 14 % (21-46); MONOCYTES ABSOLUTE AUTO 0.53 K/mm3 (0.16-1.47); MONOCYTES PERCENT AUTO 8 % (4-13); Mean Corpuscular HGB Conc 33.4 g/dL (31.5-36.5); Mean Corpuscular Volume 97 fL (80-100); NEUTROPHILS ABSOLUTE AUTO 4.86 K/mm3 (1.96-9.15); NEUTROPHILS PERCENT AUTO 76 % (41-73); NRBC ABSOLUTE 0.00 K/mm3 (0.00-0.02); NRBC Auto 0.0 /100 WBC (0.0-0.2); Platelet Count 216 K/mm3 (150-400); RDW Coefficient Variation 13.0 % (11.7-14.2); RDW Standard Deviation 45.1 fL (35.1-46.3)
[2025-04-13 05:53] LABS: pH Blood Venous 7.41 (7.34-7.37)
[2025-04-13 06:08] LABS: Alanine Aminotransfer (ALT/SGP 33.0 U/L (12-78); Albumin, Blood 3.1 g/dL (3.4-5.0); Albumin/Globulin Ratio 1.0 (0.8-1.8); Anion Gap 8.0 mmol/L (3-11); Aspartate Aminotrans (AST/SGOT 27.0 U/L (12-37); Bilirubin, Total 1.0 mg/dL (0.1-1.0); Blood Urea Nitrogen 19.0 mg/dL (8-24); CO2, Blood 28.0 mmol/L (21-32); Calcium, Blood 8.9 mg/dL (8.5-10.1); Chloride, Blood 107.0 mmol/L (98-108); Creatinine, Blood 0.74 mg/dL (0.40-1.00); Globulin, Blood 3.1 g/dL (2.2-4.0); Glucose, Blood 144.0 mg/dL (70-99); Magnesium, Blood 2.1 mg/dL (1.6-2.4); Phosphorus, Blood 3.6 mg/dL (2.5-4.9); Potassium, Blood 3.5 mmol/L (3.5-5.5); Sodium, Blood 139.0 mmol/L (136-145); Total Protein, Blood 6.2 g/dL (6.4-8.2)
[2025-04-13] MEDS ORDERED: Ipratropium/Albuterol SulF 2.5-0.5MG/3 ML Amp INH ONE (06:25)
[2025-04-13] MEDS ORDERED: Ipratropium/Albuterol SulF 2.5-0.5MG/3 ML Amp INH PRN (07:10)
[2025-04-13 08:23] VITALS: BP 122/82
--- NOTE | 2025-04-13 09:55 | NUR ---
PT ARRIVED TO UNIT @ 0810 VIA GURNEY FROM ER. SHE AMBULATED FROM [facility] TO BED WITHOUT ASSISTANCE. A&Ox4 AND ABLE TO MAKE NEEDS KNOWN. SHE IS ON RA W/O2 SATS > 92%. ADMISSION ASSESSMENT COMPLETED. PT GIVEN BREAKFAST AND ATE WITH NO ISSUES. NO OTHER NEEDS OR CONCERNS NOTED @ THIS TIME. BED IN LOW POSITION, CALL LIGHT AND PERSONAL BELONGINGS IN REACH.
[2025-04-13 11:41] VITALS: BP 110/76
[2025-04-13 12:33] LABS: Influenza A, PCR NEGATIVE (NEGATIVE); Influenza B, PCR NEGATIVE (NEGATIVE); Resp Syncytial Virus, PCR NEGATIVE (NEGATIVE)
[2025-04-13 12:46] LABS: SARS-Cov-2 (COVID-19) PCR, MMC POSITIVE (NEGATIVE)
[2025-04-13 15:19] VITALS: BP 112/72
--- NOTE | 2025-04-13 18:02 | NUR ---
PT REFUSED EVENING METOPROLOL. SHE STATED THAT "IT GIVES ME INSOMNIA AND MY DOCTOR TOLD ME TO NEVER TAKE IT AGAIN". SHE WAS EDUCATED ON THE IMPORTANCE OF TAKING PRESCRIBED MEDICATION. NO OTHER NEEDS OR CONCERNS NOTED @ THIS TIME. BED IN LOW POSITION, CALL LIGHT AND PERSONAL BELONGINGS IN REACH.
[2025-04-13 20:39] VITALS: BP 107/67
[2025-04-13] MEDS ORDERED: DEXTROMETHORPHAN/BENZOCAINE 1 EACH LOZENGE MT PRN (21:40)
[2025-04-13 23:36] VITALS: BP 101/60
[2025-04-14] VITALS (7 sets, daily range): BP systolic 92–111; BP diastolic 57–74
--- NOTE | 2025-04-14 06:46 | NUR ---
SHIFT SUMMARY: PT IS A&OX3, COOPERATIVE WITH CARE. VSS ON RA. PT DESATTING TO 83% WHILE ASLEEP, PLACED PT ON 2L OXYGEN VIA NC. SR 80'S WITH BBB. PT DID HAVE ONE 10 BEAT RUN OF VTACH AT 2330, SHE WAS ASYMPTOMATIC AND SLEEPING. DENIES PAIN. TOLERATING A HEART HEALTHY DIET, COMPLIANT WITH HER 1.8L FLUID RESTRICTION. SBA TO BR FOR LINE MANAGEMENT. VOIDING ADEQUATE AMOUNTS OF YELLOW URINE. NO BM THIS SHIFT, PULL-UP IN PLACE. PT NEEDS BOWEL CARE ORDERED. SON BARRETT CAME TO VISIT PT THIS SHIFT. THIS RN ANSWERED HIS QUESTIONS TO THE BEST OF MY ABILITY. BED IN LOWEST POSITION, CALL LIGHT WITHIN REACH. CALLS APPROPRIATELY AND IS ABLE TO ADVOCATE NEEDS EFFECTIVELY. DROPLET PRECAUTIONS MAINTAINED FOR A POSITIVE COVID RESULT.
--- NOTE | 2025-04-14 11:37 | NUR ---
"Spiritual Care ZVisit | Pt. Request Pt. is awake in bed and welcomes my visit. This teletype technician has visited the Pt. on previous admissions so rapport is quickly re-established. Facilitate an update and the Pt. verbalized in great detail some of her experience with previous medications. Listen with interest. Matters of kelsey and belief consume a large part of our visit, as Pt. shared her experience and asked questions about local churches in her community. Pt. displayed evidence of trust and requested this teletype technician to return. Prayed with Pt. Will remain available to the Pt."
[2025-04-14 12:28] LABS: Anion Gap 7.0 mmol/L (3-11); Blood Urea Nitrogen 19.0 mg/dL (8-24); CO2, Blood 28.0 mmol/L (21-32); Calcium, Blood 9.9 mg/dL (8.5-10.1); Chloride, Blood 108.0 mmol/L (98-108); Creatinine, Blood 0.52 mg/dL (0.40-1.00); Glucose, Blood 105.0 mg/dL (70-99); Potassium, Blood 3.8 mmol/L (3.5-5.5); Sodium, Blood 139.0 mmol/L (136-145)
--- NOTE | 2025-04-14 12:49 | NUR ---
SUMMARY/ TRANSFER PATIENT IS ALERT AND ORIENTED, ABLE TO FOLLOW COMMANDS AND MAKE NEEDS KNOWN. VSS, SPO2 >90% ON RA, PATIENT DENIES PRESENCE OF CHEST PAIN OR PRESSURE. TELE IN PLACE, HR 80'S-90'S. PATIENT DENIES N/V/D. PATIENT IS A SBA TO THE BATHROOM FOR LINE MANAGEMENT. REPORT GIVEN TO MEDICAL FLOOR RN. PATIENT LEFT UNIT VIA WHEELCHAIR AT 1250, PATIENT IN NO SIGNS OF DISTRESS. ALL PERSONAL BELONGINGS WITH PATIENT.
--- NOTE | 2025-04-14 13:00 | NUR ---
PT TRANSFERED FROM PCU 06 TO ROOM 361. REPORT RECIEVED FROM BOBO WELLER.
--- NOTE | 2025-04-14 20:01 | NUR ---
SHIFT SUMMARY PT IS A/OX4. SBA TO BATHROOM. NO ACUTE CHANGES THROUGHOUT THIS AFTERNOON. ON TELE RUNNING NORMAL SINUS RYTHYM IN THE 80'S. ON RA, SATS >92%.
[2025-04-15] VITALS (7 sets, daily range): BP systolic 90–117; BP diastolic 59–85
[2025-04-15 05:33] LABS: BASOPHILS ABSOLUTE AUTO 0.04 K/mm3 (0.00-0.23); BASOPHILS PERCENT AUTO 0 % (0-2); EOSINOPHILS ABSOLUTE AUTO 0.02 K/mm3 (0.00-0.68); EOSINOPHILS PERCENT AUTO 0 % (0-6); Hematocrit 37.3 % (33.0-51.0); Hemoglobin 12.7 g/dL (11.5-16.0); IMMATURE GRAN ABSOLUTE AUTO 0.03 K/mm3 (0.00-0.10); IMMATURE GRAN PERCENT AUTO 0 % (0-1); LYMPHOCYTES ABSOLUTE AUTO 1.55 K/mm3 (0.84-5.20); LYMPHOCYTES PERCENT AUTO 17 % (21-46); MONOCYTES ABSOLUTE AUTO 0.73 K/mm3 (0.16-1.47); MONOCYTES PERCENT AUTO 8 % (4-13); Mean Corpuscular HGB Conc 34.0 g/dL (31.5-36.5); Mean Corpuscular Volume 98 fL (80-100); NEUTROPHILS ABSOLUTE AUTO 6.72 K/mm3 (1.96-9.15); NEUTROPHILS PERCENT AUTO 74 % (41-73); NRBC ABSOLUTE 0.00 K/mm3 (0.00-0.02); NRBC Auto 0.0 /100 WBC (0.0-0.2); Platelet Count 254 K/mm3 (150-400); RDW Coefficient Variation 13.1 % (11.7-14.2); RDW Standard Deviation 45.4 fL (35.1-46.3)
[2025-04-15 05:55] LABS: Alanine Aminotransfer (ALT/SGP 35.0 U/L (12-78); Albumin, Blood 3.1 g/dL (3.4-5.0); Albumin/Globulin Ratio 1.0 (0.8-1.8); Anion Gap 8.0 mmol/L (3-11); Aspartate Aminotrans (AST/SGOT 25.0 U/L (12-37); Bilirubin, Total 0.7 mg/dL (0.1-1.0); Blood Urea Nitrogen 30.0 mg/dL (8-24); CO2, Blood 28.0 mmol/L (21-32); Calcium, Blood 9.3 mg/dL (8.5-10.1); Chloride, Blood 105.0 mmol/L (98-108); Creatinine, Blood 0.74 mg/dL (0.40-1.00); Globulin, Blood 3.1 g/dL (2.2-4.0); Glucose, Blood 128.0 mg/dL (70-99); Potassium, Blood 3.6 mmol/L (3.5-5.5); Sodium, Blood 137.0 mmol/L (136-145); Total Protein, Blood 6.2 g/dL (6.4-8.2)
--- NOTE | 2025-04-15 06:34 | NUR ---
Shift Summary Pt having significant anxiety at the start of the night d/t taking medications earlier in the day. She said she was feeling short of breath, RT and myself evaluated her. Lung sounds are clear, SPO2>95%, Hr was elevated in the 90's. I provided education and suggested distraction but these didn't work. Pt unable to sleep and stated she was having panic attacks. I called the NOC MD who ordered a OT dose of 0.5 mg ativan. Pt was able to sleep after rcving medication. This AM she states she still feels high but is not feeling anxiety and is able to get back to sleep. Pt is AOx4, independent in the room unless hooked up to lines then is SBA for line managment.
[2025-04-15] MEDS ORDERED: Ondansetron HCl 2 MG / ML 2ML Vial IV PRN (09:40)
[2025-04-15] MEDS ORDERED: Nitroglycerin Patch 0.1MG / HR TOP SCH (11:00)
[2025-04-15 12:14] LABS: Source, Urine Clean Catch
[2025-04-15 12:18] LABS: Bilirubin, Urine Neg (Neg); Glucose Qualitative, Urine 4+ (Neg); Ketones, Urine Neg (Neg); Leukocyte Esterase, Urine 1+ (Neg); Protein, Urine 1+ (Neg); Specific Gravity, Urine 1.010 (1.003-1.022); Urobilinogen, Urine NORM (Normal)
[2025-04-15 12:23] LABS: Color, Urine Pale Yellow (P-Yellow)
[2025-04-15 12:24] LABS: Red Blood Cells, Urine 0-2 /hpf (0-2); White Blood Cells, Urine 0-2 /hpf (0-5)
[2025-04-15] MEDS ORDERED: Enoxaparin 40 MG/0.4 ML SYR SC SCH (14:45)
[2025-04-15] MEDS ORDERED: Ascorbic Acid 250 MG Chew PO SCH (17:00)
[2025-04-15] MEDS ORDERED: Potassium Chloride 10 Meq Tablet SA PO SCH (17:00)
--- NOTE | 2025-04-15 19:17 | NUR ---
SHIFT SUMMARY PT IS A/OX4. INDEPENDENT IN THE ROOM. NO ACUTE EVENTS THROUGHOUT THIS SHIFT. ON RA, SATS WNL. PT VERY ANXIOUS THROUGHOUT THIS SHIFT, MEDICATED PER AUG. ABLE TO SLEEP THIS AFTERNOON.
[2025-04-16 03:41] VITALS: BP 104/74
--- NOTE | 2025-04-16 06:32 | NUR ---
Shift Summary Anxiety much improved since yesterday, pt did not require any anxiety intervention this shift. She was able to sleep well t/o most of the night. AOx4, indepnedent in the room. Pt did c/o of SoB at one point in the night but that is her baseline which she agreed with.
[2025-04-16 07:00] LABS: Anion Gap 11.0 mmol/L (3-11); Blood Urea Nitrogen 23.0 mg/dL (8-24); CO2, Blood 25.0 mmol/L (21-32); Calcium, Blood 9.4 mg/dL (8.5-10.1); Chloride, Blood 107.0 mmol/L (98-108); Creatinine, Blood 0.64 mg/dL (0.40-1.00); Glucose, Blood 127.0 mg/dL (70-99); Potassium, Blood 3.6 mmol/L (3.5-5.5); Sodium, Blood 139.0 mmol/L (136-145)
[2025-04-16 08:12] VITALS: BP 116/78
[2025-04-16] MEDS ORDERED: Cholecalciferol 1000 Unit Tablet (=25MCG) PO SCH (09:00)
[2025-04-16] MEDS ORDERED: Zinc Sulfate 220 MG Cap (Provides 50MG) PO SCH (09:00)
[2025-04-16 11:56] VITALS: BP 113/77
--- NOTE | 2025-04-16 12:18 | NUR ---
CALLED DR KIMBLE- PT IS HAVING EPISODES ON AND OFF OF SOB. SPOKE TO DR SORIA, HE IS AWARE. THE PT IS A HOSPICE CANTIDATE DUE TO THE SEVERITY OF HER HEART FAILURE. TELE WILL NOT BE USEFULL IN HER CASE. HER SOB IS MOST CERTAINLY D/T HF (PER ). PT IS CURRENTLY A FULL CODE. CALLED PALLIATIVE CARE RN TO DISCUSS CODE STATUS AND POLST FORM WITH THE PT.
--- NOTE | 2025-04-16 16:14 | NUR ---
REVIEWED CODE STATUS WITH PATIENT PER PROVIDER REQUEST. LIANA IS PLEASANT AND WELCOMING OF THIS VISIT. A/O X4. EDUCATION PROVIDED ON CPR VS DNR AND ALL THREE LEVELS OF MEDICAL INTERVENTIONS. PT ELECTS FOR DNR/SELECTIVE MEDICAL INTERVENTIONS. POLST FORM FILLED OUT TO REFLECT DNR/SELECTIVE. POLST PENDING PROVIDER SIGNATURE. SHE IS STARTING TO ACCEPT HER DIAGNOSIS OF HEART FAILURE. WE REVIEWED HERBAL SUPPLEMENTS VS CURRENT RX REGIMENT. SHE IS AGREEABLE TO CONTINUE WITH CURRENT TREATMENT PLAN OF BUMEX AND SPIRONOLACTONE. I VE NOTICED A DIFFERENCE THIS TIME. I M STARTING TO BREATHE A BIT BETTER. WHY DON T THEY TELL YOU AT THE DOCTORS OR PHARMACY HOW IMPORTANT IT IS TO TAKE WATER PILLS EARLY IN THE DAY? I STOPPED TAKING THEM BECAUSE I WAS UP ALL NIGHT GOING TO THE BATHROOM. REAFFIRMED EDUCATION RE: RX ADHEARANCE AND THE CARE HOME SIDE EFFECTS OF NOT TAKING DIURETICS WITH HER CHF. VERBAL ORDER OBTAINED TO CHANGE CODE STATUS TO DNR. ORDER PLACED ACCORDINGLY. PC TO REMAIN AVAILABLE NEEDED. UPDATE PROVIDED TO BEDSIDE RN.
[2025-04-16 18:02] VITALS: BP 120/83
--- NOTE | 2025-04-16 19:21 | NUR ---
SHIFT SUMMARY- PT WAS GREATLY CONCERNED ABOUT HER FLUID RESTRICTION. THIS RN DID SOME EDUCTION. SHE IS CURRENTLY EATING ICE CHIPS, AND SHE SEEMS TO HAVE A LITTLE BETTER UNDERSTANDING OF THE RESTRICTION. BEDSIDE REPORT COMPLETED WITH THE NIGHT RN. NO S&S OF DISTRESS NOTED AT THE TIME OF REPORT. PT IN BED, CALL LIGHT IN REACH, SHE IS INDEPENDENT IN THE ROOM.
[2025-04-16 19:50] VITALS: BP 105/66
[2025-04-17 03:50] VITALS: BP 111/72
[2025-04-17 05:04] LABS: BASOPHILS ABSOLUTE AUTO 0.03 K/mm3 (0.00-0.23); BASOPHILS PERCENT AUTO 1 % (0-2); EOSINOPHILS ABSOLUTE AUTO 0.04 K/mm3 (0.00-0.68); EOSINOPHILS PERCENT AUTO 1 % (0-6); Hematocrit 38.6 % (33.0-51.0); Hemoglobin 12.5 g/dL (11.5-16.0); IMMATURE GRAN ABSOLUTE AUTO 0.03 K/mm3 (0.00-0.10); IMMATURE GRAN PERCENT AUTO 1 % (0-1); LYMPHOCYTES ABSOLUTE AUTO 1.20 K/mm3 (0.84-5.20); LYMPHOCYTES PERCENT AUTO 21 % (21-46); MONOCYTES ABSOLUTE AUTO 0.54 K/mm3 (0.16-1.47); MONOCYTES PERCENT AUTO 9 % (4-13); Mean Corpuscular HGB Conc 32.4 g/dL (31.5-36.5); Mean Corpuscular Volume 97 fL (80-100); NEUTROPHILS ABSOLUTE AUTO 3.93 K/mm3 (1.96-9.15); NEUTROPHILS PERCENT AUTO 68 % (41-73); NRBC ABSOLUTE 0.00 K/mm3 (0.00-0.02); NRBC Auto 0.0 /100 WBC (0.0-0.2); Platelet Count 248 K/mm3 (150-400); RDW Coefficient Variation 13.2 % (11.7-14.2); RDW Standard Deviation 46.5 fL (35.1-46.3)
[2025-04-17 05:24] LABS: Alanine Aminotransfer (ALT/SGP 29.0 U/L (12-78); Albumin, Blood 3.1 g/dL (3.4-5.0); Albumin/Globulin Ratio 1.1 (0.8-1.8); Anion Gap 8.0 mmol/L (3-11); Aspartate Aminotrans (AST/SGOT 15.0 U/L (12-37); Bilirubin, Total 1.1 mg/dL (0.1-1.0); Blood Urea Nitrogen 25.0 mg/dL (8-24); CO2, Blood 27.0 mmol/L (21-32); Calcium, Blood 9.0 mg/dL (8.5-10.1); Chloride, Blood 107.0 mmol/L (98-108); Creatinine, Blood 0.72 mg/dL (0.40-1.00); Globulin, Blood 2.8 g/dL (2.2-4.0); Glucose, Blood 119.0 mg/dL (70-99); Magnesium, Blood 2.4 mg/dL (1.6-2.4); Phosphorus, Blood 3.4 mg/dL (2.5-4.9); Potassium, Blood 3.4 mmol/L (3.5-5.5); Sodium, Blood 139.0 mmol/L (136-145); Total Protein, Blood 5.9 g/dL (6.4-8.2)
[2025-04-17 10:12] VITALS: BP 96/66
[2025-04-17 12:13] VITALS: BP 102/68
[2025-04-17] MEDS ORDERED: Acetaminophen325 M1 PO (13:39)
[2025-04-17] MEDS ORDERED: ASPI81CH PO (13:41)
[2025-04-17] MEDS ORDERED: VITAMIN C125 MG PO (13:41)
[2025-04-17] MEDS ORDERED: BUME1 PO (13:42)
[2025-04-17] MEDS ORDERED: JARDIANCE10 MG PO (13:43)
[2025-04-17] MEDS ORDERED: LOSA25 PO (13:43)
[2025-04-17] MEDS ORDERED: KLOR-CON 1010 ME9 PO (13:44)
[2025-04-17] MEDS ORDERED: ZINC220 PO (13:45)
[2025-04-17] MEDS ORDERED: VITAMIN D5000 UNIT PO (13:45)
[2025-04-17] MEDS ORDERED: SPIR25 PO (13:45)
--- NOTE | 2025-04-17 16:02 | NUR ---
DISCHARGE NOTE- PT WAS GIVEN VERBAL AND WRITTEN DISCHARGE INSTRUCTIONS. PHA SPOKE TO HER ABOUT HER HOME MEDS. EDUCATION PROVIDED ABOUT THE MEDICATIONS AND THE IMPORTANCE OF FLUID BALANCE. SHE WAS VERY RESISTANT TO LIMITING HER FLUID INTAKE AND WAS EDUCATED MULTIPLE TIMES BY DIFFERENT STAFF.
--- NOTE | 2025-04-17 17:33 | NUR ---
PALLIATIVE CARE NOTE: POLST SIGNED BY DR. SORIA. POLST COPY SENT TO [facility]. PT HAD ALREADY DISCHARGED. WILL CHECK TO SEE IF [facility] CAN MAIL POLST TO PT.
== END 2025-04-17 15:50 | disposition home or self-care (01) | DRG 291 ==
LOC: ER 05:30 → PCU 05:31 → MEDS 04-14 12:47 → ENPENDDIS 04-17 10:28 → MEDS 04-17 15:50
PROVIDERS: Emergency Medicine; Hospitalist; ADMIT Internal Medicine
DX: I11.0 Hypertensive heart disease with heart failure (principal); I50.41 Acute combined systolic (congestive) and diastolic (congestive) heart failure; U07.1 COVID-19; J44.9 Chronic obstructive pulmonary disease, unspecified; I25.5 Ischemic cardiomyopathy; E78.5 Hyperlipidemia, unspecified; I25.10 Atherosclerotic heart disease of native coronary artery without angina pectoris; Z66 Do not resuscitate; I48.91 Unspecified atrial fibrillation; I44.7 Left bundle-branch block, unspecified; Z91.148 Patient's other noncompliance with medication regimen for other reason; Z82.49 Family history of ischemic heart disease and other diseases of the circulatory system; Z80.3 Family history of malignant neoplasm of breast; Z98.890 Other specified postprocedural states; Z87.891 Personal history of nicotine dependence; Z79.84 Long term (current) use of oral hypoglycemic drugs; Z79.899 Other long term (current) drug therapy; Z88.8 Allergy status to other drugs, medicaments and biological substances
CPT/HCPCS: 36415; 71045; 71046; 80048; 80053; 81001; 82803; 83735; 83880; 84100; 84484; 85025; 85730; 87086; 87637; 93005; 93010; 93306; 94640; 94664; 94760; 96374; 96375; 97110; 97116; 97162; 97165; 97530; 97535; 99285-25; A9270; G0378; J1650; J2919

== ENCOUNTER 2025-04-22 12:32 | Inpatient (IN) | payer MEDICARE ==
[~2025-04-22] VITALS: Ht 167.6 cm; Wt 68.7 kg
[~2025-04-22 12:32] MED LIST changes: -CLOP75 PO; -DOCU100 PO; -MIRALAX17 GM PO; -PANT40 PO; -TORSE20 PO
[2025-04-22 15:34] LABS: Influenza A, PCR NEGATIVE (NEGATIVE); Influenza B, PCR NEGATIVE (NEGATIVE); Resp Syncytial Virus, PCR NEGATIVE (NEGATIVE); SARS-Cov-2 (COVID-19) PCR, MMC POSITIVE (NEGATIVE)
[2025-04-22] MEDS ORDERED: Ondansetron HCl 2 MG / ML 2ML Vial IV PRN (21:30)
[2025-04-22] MEDS ORDERED: FLU VACC TS2025(65UP)/MF59C/PF 45 MCG/0.5 ML SYRINGE IM SCH (21:30)
[2025-04-22 22:47] VITALS: BP 114/75
[2025-04-23 00:02] VITALS: BP 109/70
[2025-04-23 07:43] LABS: Anion Gap 8.0 mmol/L (3-11); Blood Urea Nitrogen 16.0 mg/dL (8-24); CO2, Blood 27.0 mmol/L (21-32); Calcium, Blood 9.3 mg/dL (8.5-10.1); Chloride, Blood 109.0 mmol/L (98-108); Creatinine, Blood 0.73 mg/dL (0.40-1.00); Glucose, Blood 114.0 mg/dL (70-99); Magnesium, Blood 2.4 mg/dL (1.6-2.4); Potassium, Blood 4.0 mmol/L (3.5-5.5); Sodium, Blood 140.0 mmol/L (136-145)
[2025-04-23 08:01] VITALS: BP 118/83
[2025-04-23] MEDS ORDERED: Enoxaparin 40 MG/0.4 ML SYR SC SCH (09:00)
[2025-04-23] MEDS ORDERED: TORSE20 PO (10:07)
[2025-04-23 12:09] VITALS: BP 109/77
[2025-04-23 15:01] VITALS: BP 104/63
--- NOTE | 2025-04-23 18:34 | NUR ---
SHIFT SUMMARY PATIENT ALERT AND ORIENTEDX4. PATIENT MAKE NEEDS KNOWN. PLEASANT AND RECEPTIVE DURING CARE. INDEPENDENT IN ROOM. NO ACUTE CHANGE DURING THIS SHIFT. VITAL SIGNS STABLE. SELF-REPOSITION IN BED. BED LOCKED AND IN LOWEST POSITION. CALL LIGHT WITHIN REACH.
[2025-04-23 19:15] VITALS: BP 111/73
--- NOTE | 2025-04-23 20:00 | NUR ---
MISSED SHIFT SUMMARY 04/23/25 0600: PT ARRIVED TO THE FLOOR AT 04/22/25 2240, WHICH I THEN ASSUMED CARE. AOX4, AND ANXIOUS ABOUT MEDICATION REGIMEN. VSS. PT IS COVID+, BUT ON RA. DENIES CP. CARDIAC TELEMETRY MONITORING, NSR 80s. STEADY GAIT, AMBULATES INDPENENDENTLY TO RESTROOM. CALL LIGHT IS WITHIN REACH. BED IS LOW AND LOCKED. REPORT GIVEN TO CINTHIA WELLER AT 0700.
[2025-04-23] MEDS ORDERED: LORazepam 2 MG/ML 1ML Injection IV ONE (23:05)
[2025-04-23] MEDS ORDERED: NS 250 ML IV SCH (23:50)
[2025-04-24] VITALS (9 sets, daily range): BP systolic 83–118; BP diastolic 56–81
--- NOTE | 2025-04-24 03:48 | NUR ---
SHIFT SUMMARY: PT IS CURRENTLY DISORDIENTED TO SELF AND PLACE, AND TIME. AT ~2300 LAST NIGHT, PT WAS NOTED TO BE DISORIENTED AND APHASIC. PT UNABLE TO FOLLOW COMMANDS FOR STROKE EVAL. VITALS WERE STABLE AT THE TIME, BP 114/73 AND HR 78. MD NOTIFIED. HEAD CT ORDERED. PT RECIEVED 1MG ATIVAN FOR AGITATION PRIOR TO CT, AND HAS BEEN RESTING FOR MOST OF THE SHIFT. NURSE BEDSIDE SWALLOW EVAL DONE, PT GIVEN 10CC WATER AND HELD FLUID IN MOUTH BEFORE IMMEDIATELY COUGHING AFTER SWALLOWING. PT IS CURRENTLY NPO. URINE ANALYSIS ORDERED. PT RECIEVED RECTAL ASPIRIN THIS SHIFT. BED ALARM IS ON. BED IS LOW AND LOCKED. CALL LIGHT IS WITHIN REACH.
[2025-04-24] MEDS ORDERED: FentaNYL Citrate 50 MCG/ML 2 ML Injection IV ONE (06:15)
[2025-04-24 06:22] LABS: Source, Urine Straight Cath
[2025-04-24 06:27] LABS: Bilirubin, Urine Neg (Neg); Color, Urine Yellow (P-Yellow); Glucose Qualitative, Urine 2+ (Neg); Ketones, Urine Neg (Neg); Leukocyte Esterase, Urine Neg (Neg); Protein, Urine 1+ (Neg); Specific Gravity, Urine 1.025 (1.003-1.022); Urobilinogen, Urine NORM (Normal)
[2025-04-24 06:37] LABS: Red Blood Cells, Urine 0-2 /hpf (0-2); White Blood Cells, Urine 0-2 /hpf (0-5)
--- NOTE | 2025-04-24 17:49 | NUR ---
SHIFT SUMMARY PT ALERT, BUT ORIENTED TO NONE, VSS, AMB W/ ASSIST TO THE BSC, TOLERATING PO, VOIDING, AND DENIED PAIN. PT CONT TO EXHIBIT EXPRESSIVE APHASIA AND INABILITY TO FOLLLOW SOME COMMANDS AND ANSWER QUESTIONS APPROPRIATELY. MRI, CTA, AND ECHO COMPLETED THIS SHIFT. CALL LIGHT WITHIN REACH AND BED ALARM ON FOR SAFETY.
[2025-04-25 04:02] VITALS: BP 104/71
--- NOTE | 2025-04-25 06:20 | NUR ---
SOFTWARE RECRUITER SUMMARY PT A&OX1, VSS. ABLE TO COMMUNICATE AT TIMES. CAN BE HARD FOR PT TO COMMUNICATE NEEDS ACROSS D/T EXPRESSIVE APHASIA. BUT ABLE TO ASK ABOUT SIMPLE NEEDS LIKE PAIN, FOOD/WATER, REPOSITION, ETC THROUGH YES OR NO QUESTIONS. PT HAS BEEN ASLEEP FOR THE GREATER HALF OF THE SHIFT. CHEST RISE/RESPIRATIONS NOTED. REMAINS ON TELE. ST AT 101 W/ 1ST DEG HB AND BBB. ON 3L NC FOR SOB. O2 SATS WNL. NIHSS CONSISTENT AT 3 T/O THE SHIFT. PREVIOUS NIHSS OF 5 BY AM RN. UP INTERMITTENLY TO USE BSC W/ 1PA & GB. IMPULSIVE. DOES NOT CALL APPROPRIATELY FOR ASSISTANCE. BED ALARM ON, BED RAILS UP X 2, BED IN LOWEST POSITION, BED WHEELS LOCKED, PERSONAL BELONGINGS AND CALL LIGHT WITHIN REACH FOR SAFETY.
[2025-04-25 07:42] VITALS: BP 102/73
[2025-04-25 07:54] LABS: BASOPHILS ABSOLUTE AUTO 0.06 K/mm3 (0.00-0.23); BASOPHILS PERCENT AUTO 1 % (0-2); EOSINOPHILS ABSOLUTE AUTO 0.04 K/mm3 (0.00-0.68); EOSINOPHILS PERCENT AUTO 1 % (0-6); Hematocrit 40.0 % (33.0-51.0); Hemoglobin 13.1 g/dL (11.5-16.0); IMMATURE GRAN ABSOLUTE AUTO 0.01 K/mm3 (0.00-0.10); IMMATURE GRAN PERCENT AUTO 0 % (0-1); LYMPHOCYTES ABSOLUTE AUTO 1.35 K/mm3 (0.84-5.20); LYMPHOCYTES PERCENT AUTO 22 % (21-46); MONOCYTES ABSOLUTE AUTO 0.62 K/mm3 (0.16-1.47); MONOCYTES PERCENT AUTO 10 % (4-13); Mean Corpuscular HGB Conc 32.8 g/dL (31.5-36.5); Mean Corpuscular Volume 99 fL (80-100); NEUTROPHILS ABSOLUTE AUTO 4.14 K/mm3 (1.96-9.15); NEUTROPHILS PERCENT AUTO 67 % (41-73); NRBC ABSOLUTE 0.00 K/mm3 (0.00-0.02); NRBC Auto 0.0 /100 WBC (0.0-0.2); Platelet Count 223 K/mm3 (150-400); RDW Coefficient Variation 13.8 % (11.7-14.2); RDW Standard Deviation 49.1 fL (35.1-46.3)
[2025-04-25 08:13] LABS: Anion Gap 11.0 mmol/L (3-11); Blood Urea Nitrogen 20.0 mg/dL (8-24); CO2, Blood 26.0 mmol/L (21-32); Calcium, Blood 9.1 mg/dL (8.5-10.1); Chloride, Blood 106.0 mmol/L (98-108); Creatinine, Blood 0.73 mg/dL (0.40-1.00); Glucose, Blood 106.0 mg/dL (70-99); Potassium, Blood 3.8 mmol/L (3.5-5.5); Sodium, Blood 139.0 mmol/L (136-145)
--- NOTE | 2025-04-25 10:36 | NUR ---
"Spiritual Care | Family/Nurse request Pt. is awake in bed with an occupational therapist when she recognizes this corporate real estate specialist and welcomes my visit. Quickly it becomes evident that the Pt. is speaking but her words do not make sense. It is also evident that the Pt. is trying to inform this corporate real estate specialist that she is afraid of this things she experienced. With theraputic listeneing and a calming presence this corporate real estate specialist gave some spiritual mortgage loan counselor as well as normalizing the experience of the Pt. given that she is on medication for her heart. Pt. displayed a measure of understanding and agreement. Prayed with the Pt. and agreed to return later in the day. Pt. verbalized gratitude fo rthe spiritual care visit."
[2025-04-25 11:39] VITALS: BP 112/81
[2025-04-25] MEDS ORDERED: LORazepam 2 MG/ML 1ML Injection IV ONE (14:45)
[2025-04-25 15:32] VITALS: BP 105/70
--- NOTE | 2025-04-25 18:33 | NUR ---
SHIFT SUMMARY PATIENT ALERT AND ORIENTEDX1 (SELF), CONFUSED AND CAN BE IMPULSIVE. PT NIH SCORE BETWEEN 2-3 THROUGHOUT SHIFT. NO ACUTE CHANGE DURING THIS SHIFT. VITAL SIGNS STABLE. PATIENT DOES NOT USE CALL LIGHT. PATIENT ON 1L/NC. PT WORKING WITH PT AND OT. SELF-REPOSITION IN BED. BED LOCKED, ALARM ON, AND IN LOWEST POSITION. CALL LIGHT WITHIN REACH.
[2025-04-25 20:15] VITALS: BP 114/83
[2025-04-26] VITALS (7 sets, daily range): BP systolic 97–119; BP diastolic 65–95
--- NOTE | 2025-04-26 05:05 | NUR ---
SHIFT SUMMARY; PATIENT SLEPT IN SHORT INTERVAL, SETTING OFF BED ALARM OFTEN. I TALKED TO FAMILY OVER THE PHONE. TELE SR 85 WITH FIRST DEGREE AND BBB. O2/1L/NC. UP TO BSC WITH JUST 1 A.
[2025-04-26 08:10] LABS: BASOPHILS ABSOLUTE AUTO 0.04 K/mm3 (0.00-0.23); BASOPHILS PERCENT AUTO 1 % (0-2); EOSINOPHILS ABSOLUTE AUTO 0.05 K/mm3 (0.00-0.68); EOSINOPHILS PERCENT AUTO 1 % (0-6); Hematocrit 39.2 % (33.0-51.0); Hemoglobin 12.9 g/dL (11.5-16.0); IMMATURE GRAN ABSOLUTE AUTO 0.02 K/mm3 (0.00-0.10); IMMATURE GRAN PERCENT AUTO 0 % (0-1); LYMPHOCYTES ABSOLUTE AUTO 1.17 K/mm3 (0.84-5.20); LYMPHOCYTES PERCENT AUTO 19 % (21-46); MONOCYTES ABSOLUTE AUTO 0.54 K/mm3 (0.16-1.47); MONOCYTES PERCENT AUTO 9 % (4-13); Mean Corpuscular HGB Conc 32.9 g/dL (31.5-36.5); Mean Corpuscular Volume 99 fL (80-100); NEUTROPHILS ABSOLUTE AUTO 4.35 K/mm3 (1.96-9.15); NEUTROPHILS PERCENT AUTO 71 % (41-73); NRBC ABSOLUTE 0.00 K/mm3 (0.00-0.02); NRBC Auto 0.0 /100 WBC (0.0-0.2); Platelet Count 216 K/mm3 (150-400); RDW Coefficient Variation 13.4 % (11.7-14.2); RDW Standard Deviation 47.6 fL (35.1-46.3)
[2025-04-26 08:33] LABS: Alanine Aminotransfer (ALT/SGP 23 U/L (12-78); Albumin, Blood 3.0 g/dL (3.4-5.0); Albumin/Globulin Ratio 1.0 (0.8-1.8); Anion Gap 8 mmol/L (3-11); Aspartate Aminotrans (AST/SGOT 20 U/L (12-37); Bilirubin, Total 1.1 mg/dL (0.1-1.0); Blood Urea Nitrogen 19 mg/dL (8-24); CHOL/HDL RATIO 2.7; CO2, Blood 29 mmol/L (21-32); Calcium, Blood 8.9 mg/dL (8.5-10.1); Chloride, Blood 105 mmol/L (98-108); Cholesterol 151 mg/dL (50-200); Creatinine, Blood 0.67 mg/dL (0.40-1.00); Globulin, Blood 3.1 g/dL (2.2-4.0); Glucose, Blood 97 mg/dL (70-99); HDL Cholesterol 55 mg/dL (>39); LDL/HDL RATIO 1.5; Low Density Lipoprotein Chol 82 mg/dL (0-110); Potassium, Blood 3.6 mmol/L (3.5-5.5); Sodium, Blood 138 mmol/L (136-145); Total Protein, Blood 6.1 g/dL (6.4-8.2); Triglycerides 68 mg/dL (30-160); Very Low Density Lipoprot Chol 13 mg/dL (6-32)
--- NOTE | 2025-04-26 16:45 | NUR ---
SHIFT SUMMARY PT AOX2/3, COOPERATIVE, ABLE TO MAKE NEEDS KNOWN. PT IS SBA IN ROOM, ON 1L O2 CURRENLTY. TOLERATING MEDICATIONS. PT C/O CONSTIPATION, PT DID HAVE BM THIS SHIFT, MEDICATIONS ADDED TO EMAR. FAMILY BEDSIDE MOST OF SHIFT. BED IN LOWEST POSITION, CALL LIGHT WITHIN REACH.
[2025-04-26] MEDS ORDERED: Polyethylene Glycol 3350 17 gm PO SCH (21:00)
[2025-04-27 00:31] VITALS: BP 106/74
[2025-04-27 04:29] VITALS: BP 107/73
[2025-04-27 05:12] LABS: BASOPHILS ABSOLUTE AUTO 0.04 K/mm3 (0.00-0.23); BASOPHILS PERCENT AUTO 1 % (0-2); EOSINOPHILS ABSOLUTE AUTO 0.05 K/mm3 (0.00-0.68); EOSINOPHILS PERCENT AUTO 1 % (0-6); Hematocrit 39.8 % (33.0-51.0); Hemoglobin 13.0 g/dL (11.5-16.0); IMMATURE GRAN ABSOLUTE AUTO 0.01 K/mm3 (0.00-0.10); IMMATURE GRAN PERCENT AUTO 0 % (0-1); LYMPHOCYTES ABSOLUTE AUTO 1.25 K/mm3 (0.84-5.20); LYMPHOCYTES PERCENT AUTO 21 % (21-46); MONOCYTES ABSOLUTE AUTO 0.63 K/mm3 (0.16-1.47); MONOCYTES PERCENT AUTO 11 % (4-13); Mean Corpuscular HGB Conc 32.7 g/dL (31.5-36.5); Mean Corpuscular Volume 97 fL (80-100); NEUTROPHILS ABSOLUTE AUTO 4.00 K/mm3 (1.96-9.15); NEUTROPHILS PERCENT AUTO 67 % (41-73); NRBC ABSOLUTE 0.00 K/mm3 (0.00-0.02); NRBC Auto 0.0 /100 WBC (0.0-0.2); Platelet Count 205 K/mm3 (150-400); RDW Coefficient Variation 13.6 % (11.7-14.2); RDW Standard Deviation 48.4 fL (35.1-46.3)
[2025-04-27 05:34] LABS: Anion Gap 8.0 mmol/L (3-11); Blood Urea Nitrogen 15.0 mg/dL (8-24); CO2, Blood 28.0 mmol/L (21-32); Calcium, Blood 9.1 mg/dL (8.5-10.1); Chloride, Blood 104.0 mmol/L (98-108); Creatinine, Blood 0.58 mg/dL (0.40-1.00); Glucose, Blood 100.0 mg/dL (70-99); Potassium, Blood 3.4 mmol/L (3.5-5.5); Sodium, Blood 137.0 mmol/L (136-145)
--- NOTE | 2025-04-27 06:29 | NUR ---
END OF SHIFT SUMMARY: A&Ox3-4, EASILY REORIENTED. PLEASANT AND COOPERATIVE WITH CARE. CALLS APPROPRIATELY AND IS ABLE TO ADVOCATE NEEDS EFFECTIVELY. VSS. TELE STRIP IN CHART REVIEWED. NO C / O CP OR DISCOMFORT. BREATHING EVEN AND UNLABORED c 1LPM/NC. CONTINENT OF BOWEL AND BLADDER; LBM 04/26/25. TOLERATING DIET. AMBULATES INDEPENDENTLY c SBA. MEDS WHOLE c FLUIDS. ST-ELEVATION REPORTED BY DOCUMENTATION IMPROVEMENT SPECIALIST; EKG UNCHANGED FROM MOST RECENT. VSS AND NO C / O CP OR SOB. CONTINUES TO BE ANXIOUS, BUT REFUSED OFFER OF HYDROXYZINE TONIGHT. SOFT MUSIC PLAYED ON TV AND LIGHTS LOWERED c FAN. PATIENT REPORTED FEELING MUCH BETTER c SOOTHING MUSIC. STILL c APHASIA, BUT AWARE OF THIS. BED IN LOWEST POSITION, CALL LIGHT WITHIN REACH, ALL NEEDS MET. REPORT TO ONCOMING NURSE.
[2025-04-27 07:47] VITALS: BP 103/75
[2025-04-27 11:20] VITALS: BP 100/66
--- NOTE | 2025-04-27 15:07 | NUR ---
CALL TO . PATIENT STILL COMPLAINING OF NAUSEA. QT INTERVAL IS STILL 0.51 SO ONDANSATRON AND REGLAN ARE NOT USED. SON AT BEDSIDE ASKING ABOUT PLAN OF CARE. PER REMAINS THE SAME PREVIOUSLY EXPLAINED TO SON THAT PATIENT WILL GO TO SNF AND WILL BE ON ASA AND PLAVIX.
[2025-04-27 15:46] VITALS: BP 107/79
--- NOTE | 2025-04-27 16:55 | NUR ---
SHIFT SUMMARY PT AOX4, COOPERATIVE, ABLE TO MAKE NEEDS KNOWN. PT IS 1 PERSON/SBA IN ROOM DUE TO LINE MANAGEMENT. ON 1L O2 FOR COMFORT. 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 TOLERATING MEDICATIONS. FAMILY BEDSIDE. BED/CHAIR ALARM ACTIVE. BED IN LOWEST POSITION, CALL LIGHT WITHIN REACH.
[2025-04-27 19:54] VITALS: BP 97/71
[2025-04-28 00:18] VITALS: BP 113/78
[2025-04-28 04:16] VITALS: BP 110/67
--- NOTE | 2025-04-28 04:55 | NUR ---
END OF SHIFT SUMMARY: A&Ox3-4. DIFFICULTY ADVOCATING NEEDS SECONDARY TO APHASIA. TELE STRIP IN CHART REVIEWED: SR FHB & BBB @ 86bpm c QTC 0.51. NO C/O CP OR DISCOMFORT. BREATHING EVEN AND UNLABORED c 1LPM/NC AT REST; SOME EXERTIONAL DYSPNEA. CONTINENT OF BOWEL AND BLADDER; LBM 04/27/25. TOLERATING DIET THOUGH SHE DOES CONTINUE TO HAVE SOME NAUSEA. AMBULATES INDEPENDENTLY c SBA PRN. MEDS WHOLE c FLUIDS. ST-ELEVATION REPORTED BY HAND ENDBAND CUTTER; EKG UNCHANGED FROM MOST RECENT. VSS AND NO C / O CP OR SOB. CONTINUES TO BE ANXIOUS, BUT REFUSED OFFER OF HYDROXYZINE TONIGHT. SOFT MUSIC PLAYED ON TV AND LIGHTS LOWERED c FAN. PATIENT REPORTED FEELING MUCH BETTER c SOOTHING MUSIC. STILL c APHASIA, BUT AWARE OF THIS. LABS ORDERED FOR THE MORNING. BED IN LOWEST POSITION, CALL LIGHT WITHIN REACH, ALL NEEDS MET. REPORT TO ONCOMING NURSE.
[2025-04-28 05:38] LABS: BASOPHILS ABSOLUTE AUTO 0.04 K/mm3 (0.00-0.23); BASOPHILS PERCENT AUTO 1 % (0-2); EOSINOPHILS ABSOLUTE AUTO 0.03 K/mm3 (0.00-0.68); EOSINOPHILS PERCENT AUTO 1 % (0-6); Hematocrit 38.9 % (33.0-51.0); Hemoglobin 13.0 g/dL (11.5-16.0); IMMATURE GRAN ABSOLUTE AUTO 0.01 K/mm3 (0.00-0.10); IMMATURE GRAN PERCENT AUTO 0 % (0-1); LYMPHOCYTES ABSOLUTE AUTO 0.92 K/mm3 (0.84-5.20); LYMPHOCYTES PERCENT AUTO 17 % (21-46); MONOCYTES ABSOLUTE AUTO 0.55 K/mm3 (0.16-1.47); MONOCYTES PERCENT AUTO 10 % (4-13); Mean Corpuscular HGB Conc 33.4 g/dL (31.5-36.5); Mean Corpuscular Volume 98 fL (80-100); NEUTROPHILS ABSOLUTE AUTO 3.94 K/mm3 (1.96-9.15); NEUTROPHILS PERCENT AUTO 72 % (41-73); NRBC ABSOLUTE 0.00 K/mm3 (0.00-0.02); NRBC Auto 0.0 /100 WBC (0.0-0.2); Platelet Count 200 K/mm3 (150-400); RDW Coefficient Variation 13.7 % (11.7-14.2); RDW Standard Deviation 48.4 fL (35.1-46.3)
[2025-04-28 06:03] LABS: Anion Gap 8.0 mmol/L (3-11); Blood Urea Nitrogen 15.0 mg/dL (8-24); CO2, Blood 29.0 mmol/L (21-32); Calcium, Blood 9.5 mg/dL (8.5-10.1); Chloride, Blood 104.0 mmol/L (98-108); Creatinine, Blood 0.6 mg/dL (0.40-1.00); Glucose, Blood 118.0 mg/dL (70-99); Potassium, Blood 3.0 mmol/L (3.5-5.5); Sodium, Blood 138.0 mmol/L (136-145)
[2025-04-28 07:50] VITALS: BP 107/77
[2025-04-28 11:26] VITALS: BP 115/79
[2025-04-28 15:18] VITALS: BP 108/78
--- NOTE | 2025-04-28 18:19 | NUR ---
SHIFT SUMMARY PT A&0X3-4, VERY ANXIOUS, STATES SHE CAN NOT BREATH, VSS, O2 SAT CHECKED FREQUENTLY >97%, LUNGS CLEAR. PT REFUSED AM MIRALAX, C/O CONSTIPATION AND NAUSEA, MD AWARE. SUPOSITORY GIVEN, PT PASSED IT BEFORE IT COULD BE AFFECTIVE. PT EDUCATED ON IMPORTANCE OF TAKING MEDICATIONS PRESCRIBED, DOES NOT USE CALL LIGHT. EXPRESSIVE APHASIA CONTINUES. PT REFUSED PT, OT, AND ST.
[2025-04-28 20:01] VITALS: BP 108/78
[2025-04-29] VITALS (7 sets, daily range): BP systolic 97–113; BP diastolic 68–75
--- NOTE | 2025-04-29 05:37 | NUR ---
SHIFT SUMMARY PATIENT WAS ABLE TO HAVE A BM, HOWEVER PATIENT STATED IT STILL FEELS FULL--PATIENT HAD TO STRAIN TO GET THE BM OUT EVEN AGAINST THIS RNS ADVICE. HAD A FEW ANXIOUS EPIDODES, LATER IN SHIFT HAD TO MEDICATE PER EMAR FOR ANXIETY. TRIED DISTRACTION THERAPY, AND WORK THROUGH BREATHING. PATIENT IS IMPULSIVE AND ANXIOUS, PATIENT CURRENTLY READING HER BOOK. BED ALARM ON, BED AT LOWEST LEVEL, BED RAILS UP X 3
[2025-04-29 06:49] LABS: Anion Gap 7.0 mmol/L (3-11); Blood Urea Nitrogen 15.0 mg/dL (8-24); CO2, Blood 29.0 mmol/L (21-32); Calcium, Blood 9.4 mg/dL (8.5-10.1); Chloride, Blood 105.0 mmol/L (98-108); Creatinine, Blood 0.58 mg/dL (0.40-1.00); Glucose, Blood 114.0 mg/dL (70-99); Potassium, Blood 3.4 mmol/L (3.5-5.5); Sodium, Blood 138.0 mmol/L (136-145)
--- NOTE | 2025-04-29 12:05 | NUR ---
Pt. is awake and sitting up in a chair when she welcomes this construction helper. Pt. is pleasant with this construction helper but verbalized concern about "these people" who she feels want the worst for her. Pt. continues to display evidence of confusion and often catches herself unable to communicate. This construction helper sought to normalize the Pt. experience and encopuraged the Pt. by focusing on her improvement. The pt. displayed evidence of some understanding, but was often negative in her assessment. Pastoral care and MORE normalization of the Pt. experience seemed to provide the Pt. some anxiety relief. Pryaed with the Pt. Pt. verbalized gratitude for the spiritual care visit.
--- NOTE | 2025-04-29 18:45 | NUR ---
SHIFT SUMMARY PT A&OX3-4, CONFUSED AT TIMES, EXPRESSIVE APHASIA CONTINUES, BUT SEEMS TO BE IMPROVING SINCE YESTERDAY. SBA TO BATHROOM. ANXIOUS AND STATES SOB, LUNGS CLEAR AND O2 SAT>95 ON 1L O2. FAMILY AT BEDSIDE THROUGH OUT MOST OF SHIFT, PT ABLE TO NAP TODAY. NO COMPLAINTS OF PAIN. PT ABLE TO MAKE NEEDS KNOWN, CALL LIGHT IN REACH.
[2025-04-30 00:06] VITALS: BP 103/67
[2025-04-30 04:17] VITALS: BP 104/77
[2025-04-30 05:32] LABS: Anion Gap 7.0 mmol/L (3-11); Blood Urea Nitrogen 15.0 mg/dL (8-24); CO2, Blood 28.0 mmol/L (21-32); Calcium, Blood 9.0 mg/dL (8.5-10.1); Chloride, Blood 107.0 mmol/L (98-108); Creatinine, Blood 0.58 mg/dL (0.40-1.00); Glucose, Blood 119.0 mg/dL (70-99); Potassium, Blood 3.3 mmol/L (3.5-5.5); Sodium, Blood 139.0 mmol/L (136-145)
[2025-04-30 07:39] VITALS: BP 118/84
[2025-04-30 15:50] VITALS: BP 121/82
--- NOTE | 2025-04-30 17:15 | NUR ---
NOTE PT UP IN CHAIR AT BEDSIDE. ALERT, COOPERATIVE WITH CARE. VSS. POOR APPETITE. SPOUCE RELATED THATS NORMAL FOR HER. PT HAS WORD FINDING DIFFICULTIES AT TIMES. GATE STEADY. 1L N/C. PT EXPERIENCES SIGINFICANT ANXIETY-HYPERVENTILATES. ATARAX VERY HLEPFUL. SHE WAS ABLE TO PARTICIPATE IN THERAPIES TODAY. DOES NOT MAKE HER SLEEPY. VSS. BED LOW AND LOCKED. SLIPPY SOCKS ON. CARE ONGOING.
[2025-04-30 20:46] VITALS: BP 103/67
[2025-05-01 00:38] VITALS: BP 101/66
[2025-05-01 04:33] VITALS: BP 105/75
--- NOTE | 2025-05-01 05:08 | NUR ---
PT FOUND TO BE VERY ANXIOUS ON EXAM, SPOKE WITH SON NICHOLE AT BEDSIDE. HE IS VERY WORRIED ABOUT THE PT STATING THAT SHE DOESN'T SEEM LIKE HERSELF AFTER RECENT CVA. HE'S ALSO CONCERNED ABOUT PT'S LACK OF PO INTAKE AND THINKS SHE SHOULD BE ON PARENTERAL NUTRITION, ADVISED THAT WE WOULD LIKE TO HAVE HER INCREASE PO INTAKE IT IS HER BASELINE. OVERNIGHT PT DRANK AN ENSURE, AND HAD 2 SNACKS. ORDERED ATARAX SEEMS TO HELP GREATLY WITH ANXIETY. C/O SoB WITH MORNING VITALS, LUNGS CLEAR TO AUSCULTATION, ATARAX GIVEN WHICH SEEMED TO CALM THE PT DOWN. MEDIUM SOFT BM THIS MORNING WELL. PT PLEASANT AND USING LIGHT NEEDED
[2025-05-01 07:48] VITALS: BP 108/73
[2025-05-01 10:14] LABS: Alanine Aminotransfer (ALT/SGP 19.0 U/L (12-78); Albumin, Blood 2.9 g/dL (3.4-5.0); Albumin/Globulin Ratio 0.9 (0.8-1.8); Anion Gap 8.0 mmol/L (3-11); Aspartate Aminotrans (AST/SGOT 18.0 U/L (12-37); Bilirubin, Total 1.2 mg/dL (0.1-1.0); Blood Urea Nitrogen 19.0 mg/dL (8-24); CO2, Blood 26.0 mmol/L (21-32); Calcium, Blood 9.4 mg/dL (8.5-10.1); Chloride, Blood 107.0 mmol/L (98-108); Creatinine, Blood 0.62 mg/dL (0.40-1.00); Globulin, Blood 3.2 g/dL (2.2-4.0); Glucose, Blood 183.0 mg/dL (70-99); Magnesium, Blood 2.5 mg/dL (1.6-2.4); Potassium, Blood 3.7 mmol/L (3.5-5.5); Sodium, Blood 137.0 mmol/L (136-145); Total Protein, Blood 6.1 g/dL (6.4-8.2)
[2025-05-01 15:32] VITALS: BP 105/78
[2025-05-01] MEDS ORDERED: DEXTROMETHORPHAN/BENZOCAINE 1 EACH LOZENGE MT PRN (16:00)
[2025-05-01] MEDS ORDERED: Sucralfate 1000MG / 10ML UD BTL PO SCH (16:30)
--- NOTE | 2025-05-01 18:20 | NUR ---
NOTE ALERT AND OREINTED. COOPERATIVE WITH CARE. OCCASIONALLY NEEDS HELP WITH HER ANXIETY. MEDICATED WITH ATARAX X2. ATARAX DOESN'T MAKE HER SLEEPY BUT IT DOES HELP HER WITH HER PROFOUND ANXIETY. SHE HAS BEEN ABLE TO COMMUNICATE AND FIND THE WORDS TO EXPRESS HER THOUGHTS. SON HERE TO SEE HER. OVER HEARD HIM YELLING AT HER. VSS. TALKED WITH DR CLAY ABOUT STOMACH ISSUES. ORDER FOR CARAFATE LIQUID RECEIVED. PT AGREEABLE TO TAKE. SHE IS CURRENTLY SITTING AT BEDSIDE EATING DINNER. SHE EXPRESSED THAT HER STOMACH IS MUCH BETTER. SHE IS HUNGRY AND HAS ALREADY ATE THE MAIN, BREAD AND IS STARTING ON THE SALAD. NO OBSERVED INCIDENCE OF HER TRYING TO INDUCE VOMITING TODAYPT CALLING WITH CALL LIGHT WHEN SHE NEEDS HER HAT EMPTIED. PT BECOMES VERY SOB WHEN SHE GETS UP AND MOVES AROUND. WHILE VISITING WITH PT EDCUATED HER ABOUT WHY SHE IS SOB, HER WEAK HEART FUNCTION, EXERCISE CONSERVATION. REASSURED HER THAT WHAT SHE IS FEELING IS PHYSICAL, NOT IN HER MIND, AND THAT BEING ANXIOUS IS EXPECTED. WE WORKED THROUGH BREATHING EXERCISES TO HELP WITH HER ANXIETY. AND ENCOURAGED HER TO REST WHEN SHE FEELS SHORT OF BREATH. SHE HAS ASKED MORE QUESTIONS AND HAS BEEN ABLE TO REPEAT BACK AND DEMONSTRATE.
[2025-05-01 20:10] VITALS: BP 117/80
[2025-05-02 00:27] VITALS: BP 98/69
--- NOTE | 2025-05-02 04:26 | NUR ---
PT HAS HAD A MUCH MORE RELAXED EVENING. BEGAN SHIFT SLIGHTLY ANXIOUS AND SoB, EDUCATED PT ON ORIGIN OF SoB AND ITS CONTIBUTION TO HER ANXIETY. PT REPORTS SHE'S SLEPT ALL NIGHT OTHER THAN VITALS. STATES HER BACK IS SORE FROM SLEEPING ON IT ALL NIGHT BACK RUB OFFERED AND ACCEPTED. PT STATES SHE FEELS MUCH BETTER. PT SEEMS TO BE MORE INTERESTED IN ORAL INTAKE STATING SHE IS READY FOR BREAKFAST.
[2025-05-02 04:33] VITALS: BP 104/70
[2025-05-02 07:32] VITALS: BP 113/84
--- NOTE | 2025-05-02 09:18 | NUR ---
PALLIATIVE CARE NOTE: CONSULT RECEIVED 05/01/25 FOR CARDIAC, ADVANCED CARE PLANNING, END STAGE DISEASE. REVIEWED MEDICAL RECORD. PT IS CURRENTLY DNR CODE STATUS. POLST ON FILE STATES CPR. NO AD ON FILE. PT EXPECTED TO GO TO SNF. SHE HAS BEEN HERE SINCE 04/23/25 DUE TO CVA, HF. EF 15-20%.
[2025-05-02 11:15] VITALS: BP 109/77
[2025-05-02] MEDS ORDERED: CLOP75 PO (14:48)
[2025-05-02] MEDS ORDERED: DOCU100 PO (14:48)
[2025-05-02] MEDS ORDERED: HYDHCL25 PO (14:49)
[2025-05-02] MEDS ORDERED: MIRALAX17 GM PO (14:49)
[2025-05-02] MEDS ORDERED: PANT40 PO (14:50)
--- NOTE | 2025-05-02 16:10 | NUR ---
DISCHARGE 1530 PT AOX3/4, COOPERATIVE, ABLE TO MAKE NEEDS KNOWN. PT IS SBA IN ROOM FOR LINE MANAGEMENT. TOLERATING MEDICATIONS. ON 1L O2 FOR ANXIETY AND COMFORT. FAMILY BEDSIDE MOST OF SHIFT. PT DOES HAVE SOME EXPRESSIVE ASPHAGIA WELL CONFUSION. TELE AND IV'S DC'D BY WORKERS COMPENSATION DEFENSE ATTORNEY WITHOUT ISSUE. THIS RN WENT OVER DC PAPERWORK WITH PT AND FAMILY MEMBER. THIS RN INFORMED FAMILY THAT IF ANY QUESTIONS ARISE, THEN TO CALL THE NUMBER SUPPLIED ON THE DC PAPERWORK. ALL BELONGINGS WENT WITH PT.
--- NOTE | 2025-05-02 23:27 | NUR ---
RAPID RESPONSE NOTE FOR 0700 ON 04/24/25: RAPID RESPONSE CALLED ON PT DUE TO STROKE LIKE SYMPTOMS. PT WAS INCREASINGLY CONFUSED, WORD SALAD, NOT FOLLOWING COMMANDS, AND WEAK IN STRENGTH. RAPID RESPONSE TEAM ARRIVED TO PT ROOM, DR. KAY AND DAY SHIFT HOSPITALIST ARRIVED. MRI AND CTA HEAD/NECK ORDERED. REPORT GIVEN TO MICHELE WELLER.
== END 2025-05-02 15:39 | disposition home health service (06) | DRG 291 ==
LOC: ER 12:32 → MEDS 12:33 → ENPENDDIS 05-02 13:51 → MEDS 05-02 15:39
PROVIDERS: Family Medicine; Internal Medicine; Nurse Practitioner Acute Care; Physician Assistant; Student in an Organized Health Care Education/Training Program; ADMIT Internal Medicine
PROC: 8E0ZXY6 Isolation (ICD-10-PCS; principal; 2025-04-23)
DX: I11.0 Hypertensive heart disease with heart failure (principal); I50.23 Acute on chronic systolic (congestive) heart failure; U07.1 COVID-19; I63.89 Other cerebral infarction; I47.20 Ventricular tachycardia, unspecified; R47.01 Aphasia; I25.5 Ischemic cardiomyopathy; Z66 Do not resuscitate; G83.14 Monoplegia of lower limb affecting left nondominant side; I25.10 Atherosclerotic heart disease of native coronary artery without angina pectoris; I27.20 Pulmonary hypertension, unspecified; E78.5 Hyperlipidemia, unspecified; I34.0 Nonrheumatic mitral (valve) insufficiency; R47.1 Dysarthria and anarthria; E87.6 Hypokalemia; R47.81 Slurred speech; R29.704 NIHSS score 4; Z91.148 Patient's other noncompliance with medication regimen for other reason; Z88.8 Allergy status to other drugs, medicaments and biological substances; Z79.82 Long term (current) use of aspirin; Z79.84 Long term (current) use of oral hypoglycemic drugs
CPT/HCPCS: 36415; 70450; 70496; 70498; 70551; 80048; 80053; 80061; 81001; 82947; 83036; 83735; 84484; 85025; 87637; 92507; 92523; 92526; 92610; 93005; 93010; 94760; 94761; 96372; 96374; 96375; 97110; 97116; 97161; 97165; 97530; 97535; 99285-25; A9270; C8929; G0378; J1650; J1938; J2060; J2405; J3010; Q9957; Q9967

== ENCOUNTER → 2025-04-22 | Outpatient (CLI) | payer MEDICARE ==
[~2025-04-22] MED LIST changes: +ASPI81CH PO; +Acetaminophen325 M1 PO; +CLOP75 PO; +DOCU100 PO; +KLOR-CON 1010 ME9 PO; +MIRALAX17 GM PO; +PANT40 PO; +TORSE20 PO; +VITAMIN C125 MG PO; +VITAMIN D5000 UNIT PO; +ZINC220 PO
[2025-04-22 11:00] LABS: BASOPHILS ABSOLUTE AUTO 0.04 K/mm3 (0.00-0.23); BASOPHILS PERCENT AUTO 1 % (0-2); EOSINOPHILS ABSOLUTE AUTO 0.02 K/mm3 (0.00-0.68); EOSINOPHILS PERCENT AUTO 0 % (0-6); Hematocrit 41.7 % (33.0-51.0); Hemoglobin 13.8 g/dL (11.5-16.0); IMMATURE GRAN ABSOLUTE AUTO 0.02 K/mm3 (0.00-0.10); IMMATURE GRAN PERCENT AUTO 0 % (0-1); LYMPHOCYTES ABSOLUTE AUTO 0.74 K/mm3 (0.84-5.20); LYMPHOCYTES PERCENT AUTO 12 % (21-46); MONOCYTES ABSOLUTE AUTO 0.54 K/mm3 (0.16-1.47); MONOCYTES PERCENT AUTO 9 % (4-13); Mean Corpuscular HGB Conc 33.1 g/dL (31.5-36.5); Mean Corpuscular Volume 96 fL (80-100); NEUTROPHILS ABSOLUTE AUTO 4.71 K/mm3 (1.96-9.15); NEUTROPHILS PERCENT AUTO 78 % (41-73); NRBC ABSOLUTE 0.00 K/mm3 (0.00-0.02); NRBC Auto 0.0 /100 WBC (0.0-0.2); Platelet Count 254 K/mm3 (150-400); RDW Coefficient Variation 13.7 % (11.7-14.2); RDW Standard Deviation 48.2 fL (35.1-46.3)
[2025-04-22 11:10] LABS: Alanine Aminotransfer (ALT/SGP 24.0 U/L (12-78); Albumin, Blood 3.1 g/dL (3.4-5.0); Albumin/Globulin Ratio 0.9 (0.8-1.8); Anion Gap 12.0 mmol/L (3-11); Aspartate Aminotrans (AST/SGOT 21.0 U/L (12-37); Bilirubin, Total 1.0 mg/dL (0.1-1.0); Blood Urea Nitrogen 16.0 mg/dL (8-24); CO2, Blood 24.0 mmol/L (21-32); Calcium, Blood 9.0 mg/dL (8.5-10.1); Chloride, Blood 106.0 mmol/L (98-108); Creatinine, Blood 0.73 mg/dL (0.40-1.00); Globulin, Blood 3.3 g/dL (2.2-4.0); Glucose, Blood 128.0 mg/dL (70-99); Potassium, Blood 4.2 mmol/L (3.5-5.5); Sodium, Blood 138.0 mmol/L (136-145); Total Protein, Blood 6.4 g/dL (6.4-8.2)
== END ==
LOC: LAB 10:56 → LAB SHORT 10:56
PROVIDERS: Physician Assistant
DX: I50.9 Heart failure, unspecified (principal)
CPT/HCPCS: 80053; 83880; 85025

== ENCOUNTER 2025-05-11 05:29 | Inpatient (IN) | payer MEDICARE ==
[~2025-05-11] VITALS: Ht 160 cm; Wt 66.1 kg
[~2025-05-11 05:29] MED LIST changes: +CLOP75 PO; +DOCU100 PO; +MIRALAX17 GM PO; +PANT40 PO; +TORSE20 PO
[2025-05-11] MEDS ORDERED: Midazolam HCl 1MG / ML 2ML Vial IV ONE (05:40)
[2025-05-11 05:49] LABS: BASOPHILS ABSOLUTE AUTO 0.04 K/mm3 (0.00-0.23); BASOPHILS PERCENT AUTO 1 % (0-2); EOSINOPHILS ABSOLUTE AUTO 0.26 K/mm3 (0.00-0.68); EOSINOPHILS PERCENT AUTO 3 % (0-6); Hematocrit 43.3 % (33.0-51.0); Hemoglobin 14.2 g/dL (11.5-16.0); IMMATURE GRAN ABSOLUTE AUTO 0.04 K/mm3 (0.00-0.10); IMMATURE GRAN PERCENT AUTO 1 % (0-1); LYMPHOCYTES ABSOLUTE AUTO 1.18 K/mm3 (0.84-5.20); LYMPHOCYTES PERCENT AUTO 15 % (21-46); MONOCYTES ABSOLUTE AUTO 0.69 K/mm3 (0.16-1.47); MONOCYTES PERCENT AUTO 9 % (4-13); Mean Corpuscular HGB Conc 32.8 g/dL (31.5-36.5); Mean Corpuscular Volume 96 fL (80-100); NEUTROPHILS ABSOLUTE AUTO 5.72 K/mm3 (1.96-9.15); NEUTROPHILS PERCENT AUTO 72 % (41-73); NRBC ABSOLUTE 0.00 K/mm3 (0.00-0.02); NRBC Auto 0.0 /100 WBC (0.0-0.2); Platelet Count 268 K/mm3 (150-400); RDW Coefficient Variation 13.9 % (11.7-14.2); RDW Standard Deviation 49.4 fL (35.1-46.3)
[2025-05-11 06:01] LABS: pH Blood Venous 7.43 (7.34-7.37)
[2025-05-11 06:05] LABS: D-Dimer, Quantitative 1.08 mg/L FEU (0.00-0.52); Prothrombin Time Results 12.4 Sec (9.7-11.5)
[2025-05-11 06:25] LABS: Alanine Aminotransfer (ALT/SGP 23.0 U/L (12-78); Albumin, Blood 3.5 g/dL (3.4-5.0); Albumin/Globulin Ratio 1.0 (0.8-1.8); Anion Gap 10.0 mmol/L (3-11); Aspartate Aminotrans (AST/SGOT 19.0 U/L (12-37); Bilirubin, Total 1.3 mg/dL (0.1-1.0); Blood Urea Nitrogen 20.0 mg/dL (8-24); CO2, Blood 26.0 mmol/L (21-32); Calcium, Blood 10.0 mg/dL (8.5-10.1); Chloride, Blood 105.0 mmol/L (98-108); Creatinine, Blood 0.71 mg/dL (0.40-1.00); Globulin, Blood 3.4 g/dL (2.2-4.0); Glucose, Blood 158.0 mg/dL (70-99); Potassium, Blood 3.4 mmol/L (3.5-5.5); Sodium, Blood 138.0 mmol/L (136-145); Total Protein, Blood 6.9 g/dL (6.4-8.2)
[2025-05-11] MEDS ORDERED: FLU VACC TS2025(65UP)/MF59C/PF 45 MCG/0.5 ML SYRINGE IM SCH (09:00)
[2025-05-11] MEDS ORDERED: Enoxaparin 40 MG/0.4 ML SYR SC SCH (09:00)
[2025-05-11 11:07] VITALS: BP 101/71
[2025-05-11] MEDS ORDERED: ONDA4ODT MM (11:19)
[2025-05-11] MEDS ORDERED: DOCU100 PO (11:21)
--- NOTE | 2025-05-11 13:48 | NUR ---
PALLIATIVE CARE CONSULT: CONSULT RECEIVED FOR CARDIAC/READMISSION. REVIEWED MEDICAL RECORD. POLST FOUND ON OPR RECENTLY COMPLETED ON 04/17/25 AT LAST ADMISSION STATING DNR/SELECTIVE. PLACED ON CHART AND SENT TO MEDICAL RECORDS.
[2025-05-11 15:36] VITALS: BP 92/69
[2025-05-11 15:45] VITALS: BP 91/65
--- NOTE | 2025-05-11 16:00 | NUR ---
PALLIATIVE CARE VISIT: MET WITH PT IN THE ROOM. ATTEMPTED TO DISCUSS GOC, HOWEVER, PT WAS UNABLE TO TREACK CONVERSATION AND ANSWER QUESTIONS APPROPRIATELY. SHE WOULD START TO ANSWER QUESTION BUT THEN TALK ABOUT SOMETHING ENTIRELY DIFFERENT AFTER A FEW WORDS. ACCORDING TO STAFF, PT SPOUSE WAS EXHAUSTED AND WENT HOME TO SLEEP. WILL ATTEMPT VISIT TOMORROW.
--- NOTE | 2025-05-11 18:17 | NUR ---
SHIFT SUMMARY PATIENT ADMITTED FROM ED THIS SHIFT. A/O X2. FAMILY INTERMITTENTLY IN ROOM. ONLY TOLERATED BIPAP FOR ABOUT 5 MINUTES BEFORE IT HAD TO BE REMOVED. TITRATED DOWN TO 2 LITERS NC, SATING MID 90'S. ANXIOUS THROUGHOUT SHIFT. PALLIATIVE IN TO ROUND, SEE OTHER NOTE. MOSTLY ABLE TO MAKE NEEDS KNOWN. CALL LIGHT IN REACH, BED ALARMED.
[2025-05-11 19:47] VITALS: BP 93/73
[2025-05-12 04:20] VITALS: BP 97/69
[2025-05-12 06:15] LABS: BASOPHILS ABSOLUTE AUTO 0.06 K/mm3 (0.00-0.23); BASOPHILS PERCENT AUTO 1 % (0-2); EOSINOPHILS ABSOLUTE AUTO 0.29 K/mm3 (0.00-0.68); EOSINOPHILS PERCENT AUTO 4 % (0-6); Hematocrit 39.9 % (33.0-51.0); Hemoglobin 13.3 g/dL (11.5-16.0); IMMATURE GRAN ABSOLUTE AUTO 0.04 K/mm3 (0.00-0.10); IMMATURE GRAN PERCENT AUTO 1 % (0-1); LYMPHOCYTES ABSOLUTE AUTO 1.15 K/mm3 (0.84-5.20); LYMPHOCYTES PERCENT AUTO 17 % (21-46); MONOCYTES ABSOLUTE AUTO 0.70 K/mm3 (0.16-1.47); MONOCYTES PERCENT AUTO 10 % (4-13); Mean Corpuscular HGB Conc 33.3 g/dL (31.5-36.5); Mean Corpuscular Volume 98 fL (80-100); NEUTROPHILS ABSOLUTE AUTO 4.73 K/mm3 (1.96-9.15); NEUTROPHILS PERCENT AUTO 68 % (41-73); NRBC ABSOLUTE 0.00 K/mm3 (0.00-0.02); NRBC Auto 0.0 /100 WBC (0.0-0.2); Platelet Count 235 K/mm3 (150-400); RDW Coefficient Variation 13.7 % (11.7-14.2); RDW Standard Deviation 49.0 fL (35.1-46.3)
--- NOTE | 2025-05-12 06:37 | NUR ---
PT GETS ANXIOUS AND SOB WHILE AWAKE, WHILE PT IS SLEEPING RR REMAIN EVEN AND UNLABORED. PT HAS REFUSED BIPAP T/O THIS SHIFT. SLEPT T/O MOST OF THE SHIFT.
[2025-05-12 06:46] LABS: Alanine Aminotransfer (ALT/SGP 21.0 U/L (12-78); Albumin, Blood 3.2 g/dL (3.4-5.0); Albumin/Globulin Ratio 1.1 (0.8-1.8); Anion Gap 10.0 mmol/L (3-11); Aspartate Aminotrans (AST/SGOT 18.0 U/L (12-37); Bilirubin, Total 1.1 mg/dL (0.1-1.0); Blood Urea Nitrogen 23.0 mg/dL (8-24); CO2, Blood 27.0 mmol/L (21-32); Calcium, Blood 9.4 mg/dL (8.5-10.1); Chloride, Blood 104.0 mmol/L (98-108); Creatinine, Blood 0.8 mg/dL (0.40-1.00); Globulin, Blood 3.0 g/dL (2.2-4.0); Glucose, Blood 127.0 mg/dL (70-99); Potassium, Blood 3.4 mmol/L (3.5-5.5); Sodium, Blood 138.0 mmol/L (136-145); Total Protein, Blood 6.2 g/dL (6.4-8.2)
[2025-05-12 07:49] VITALS: BP 108/85
--- NOTE | 2025-05-12 10:26 | NUR ---
1020- MD ROBERSON GAVE VERABL TO PLACE PALLIATIVE CARE CONSULT, PLACE PT ON 1500ML FLUID RESTRICTION, AND PLACE PT ON STRICT I&O'S.
--- NOTE | 2025-05-12 10:30 | NUR ---
1030- TELEPHONE VERBAL FROM KAROL TO PLACE ORDER FOR 25MG ATARAX BID PRN FOR ANXIETY.
[2025-05-12 15:30] VITALS: BP 103/72
--- NOTE | 2025-05-12 17:01 | NUR ---
1654- THIS RN NOTIFIED MD ROBERSON THAT PT'S SON WAS INQUIRING ABOUT PT STARTING [facility] AT THE HOSPITAL. NO NEW ORDERS. STATED HE WAS IN THE ER.
--- NOTE | 2025-05-12 18:06 | NUR ---
SUMMARY- AAOX1-2 THIS SHIFT. X1 ASSIST TO BSC/BATHROOM. PT DENIES ANY PAIN THIS SHIFT. PT ON 2L ALL SHIFT CONTINUOUSLY. NO ACUTE EVENTS THIS SHIFT. PT DOES GET SOB WITH EXERTION. PT DID REQUIRE ATARAX X2 THIS SHIFT DUE TO AN INCREASE IN ANXIETY.
[2025-05-12 20:08] VITALS: BP 104/68
[2025-05-13] VITALS (8 sets, daily range): BP systolic 86–117; BP diastolic 51–77
--- NOTE | 2025-05-13 04:07 | NUR ---
SHIFT SUMMARY 85 YR F ADMITTED ON 05/11/25. DNR. NO ACUTE CHANGES THIS SHIFT. PT HAS HAD DIFFICULTY SLEEPING THROUGHOUT THE NIGHT AND HAS EXPRESSED THAT SHE IS CONFUSED AND AFRAID. THIS NURSE SPENT ONE ON ONE TIME WITH PT AND REASSURED HER THAT SHE IS SAFE. PT RESPONDED WELL TO BE COMFORTED. ATARAX GIVEN @ 0330. PT HAS MADE IT CLEAR THAT SHE IS NOT COMFORTABLE WITH A MALE NURSE ASSISTING HER WITH USING THE BSC (THE BREAK NURSE WAS MALE AND PT REFUSED). HER CONTINUOUS PULSE BIOX WAS REMOVED THERE WAS A SHORTAGE OF THEM AND ANOTHER PT HAD A GREATER MEDICAL NEED FOR IT. PT IS STILL CURRENTLY ON 2 L O2 NC. PER PREVIOUS NURSE NOTE, THERE SHOULD BE A 1500 ML FLUID RESTRICTION, HOWEVER, THERE IS NO ORDER FOR IT. WILL SPEAK TO DAYSHIFT RN REGARDING THIS. PT HAS HAD LESS THAN 200 ML TO DRINK THROUGHOUT THE NIGHT. PT IS RESTING COMFORTABLY AT THIS TIME. BED IN LOW POSITION AND CALL LIGHT IN REACH.
[2025-05-13 05:57] LABS: BASOPHILS ABSOLUTE AUTO 0.05 K/mm3 (0.00-0.23); BASOPHILS PERCENT AUTO 1 % (0-2); EOSINOPHILS ABSOLUTE AUTO 0.24 K/mm3 (0.00-0.68); EOSINOPHILS PERCENT AUTO 3 % (0-6); Hematocrit 38.3 % (33.0-51.0); Hemoglobin 13.3 g/dL (11.5-16.0); IMMATURE GRAN ABSOLUTE AUTO 0.06 K/mm3 (0.00-0.10); IMMATURE GRAN PERCENT AUTO 1 % (0-1); LYMPHOCYTES ABSOLUTE AUTO 1.28 K/mm3 (0.84-5.20); LYMPHOCYTES PERCENT AUTO 18 % (21-46); MONOCYTES ABSOLUTE AUTO 0.95 K/mm3 (0.16-1.47); MONOCYTES PERCENT AUTO 13 % (4-13); Mean Corpuscular HGB Conc 34.7 g/dL (31.5-36.5); Mean Corpuscular Volume 94 fL (80-100); NEUTROPHILS ABSOLUTE AUTO 4.70 K/mm3 (1.96-9.15); NEUTROPHILS PERCENT AUTO 65 % (41-73); NRBC ABSOLUTE 0.00 K/mm3 (0.00-0.02); NRBC Auto 0.0 /100 WBC (0.0-0.2); RDW Coefficient Variation 13.6 % (11.7-14.2); RDW Standard Deviation 45.8 fL (35.1-46.3)
[2025-05-13 06:07] LABS: Platelet Count 173 K/mm3 (150-400)
[2025-05-13 06:18] LABS: Alanine Aminotransfer (ALT/SGP 24.0 U/L (12-78); Albumin, Blood 2.9 g/dL (3.4-5.0); Albumin/Globulin Ratio 0.9 (0.8-1.8); Anion Gap 9.0 mmol/L (3-11); Aspartate Aminotrans (AST/SGOT 21.0 U/L (12-37); Bilirubin, Total 1.1 mg/dL (0.1-1.0); Blood Urea Nitrogen 26.0 mg/dL (8-24); CO2, Blood 28.0 mmol/L (21-32); Calcium, Blood 8.9 mg/dL (8.5-10.1); Chloride, Blood 103.0 mmol/L (98-108); Creatinine, Blood 0.82 mg/dL (0.40-1.00); Globulin, Blood 3.1 g/dL (2.2-4.0); Glucose, Blood 115.0 mg/dL (70-99); Magnesium, Blood 2.1 mg/dL (1.6-2.4); Potassium, Blood 3.1 mmol/L (3.5-5.5); Sodium, Blood 137.0 mmol/L (136-145); Total Protein, Blood 6.0 g/dL (6.4-8.2)
--- NOTE | 2025-05-13 17:35 | NUR ---
1730-CALL TO MILDRED AFTER MULTIPLE CALLS TO MD ROBERSON W/NO ANSWER SINCE 1600. THIS RN INFORMED MILDRED THAT PT'S LAST BP=86/51 AND COREG WAS HELD HR=66 AND ASKED IF LASIX IV 40MG WAS TO BE GIVEN. MILDRED STATED TO HOLD IV LASIX. THIS RN ALSO INFORMED MILDRED THAT PT'S K+=3.1 THIS MORNING AND PT'S POTASSIUM WAS NEVER REPLACED. MILDRED STATED TO ORDER 40MEQ POTASSIUM CHLORDIE NOW PO.
--- NOTE | 2025-05-13 17:44 | NUR ---
SUMMARY- AAOX1-2 THIS SHIFT. SBA-X1 ASSIST. PT ON 2L O2 CONTINUOUS THIS SHIFT. PT NEEDS CONTINUOUS REORIENTING REGARDING HER STATUS. PT'S SON AND GIVEN UPDATES IN DETAIL IN PERSON REGRDING PT'S STATUS AND THE PLAN. PT HAS MINIMAL APPETITE. PT DENIES PAIN THIS SHIFT. NO ACUTE EVENTS THIS SHIFT.
--- NOTE | 2025-05-13 19:33 | NUR ---
1910- TELEPHONE VERBAL FROM MD ROBERSON TO CHANGE IV LASIX DOSAGE TO 20MG IV BID AND TO HOLD IF SBP<100.
[2025-05-14 03:42] VITALS: BP 102/67
--- NOTE | 2025-05-14 04:02 | NUR ---
SHIFT SUMMARY NO ACUTE CHANGES THIS SHIFT. PT APPEARS TO HAVE RESTED COMFORTABLY FOR MOST OF THE NIGHT. SHE IS STILL VERY CONFUSED WHEN SHE WAKES UP BUT SHE SLEPT MUCH BETTER TONIGHT THAN SHE DID LAST NIGHT. SHE RESPONDS WELL TO REASSURANCE. NO NEW CHANGES TO REPORT. BED IN LOW POSITION WITH ALARM ON AND CALL LIGHT IN REACH.
[2025-05-14 05:58] LABS: BASOPHILS ABSOLUTE AUTO 0.04 K/mm3 (0.00-0.23); BASOPHILS PERCENT AUTO 1 % (0-2); EOSINOPHILS ABSOLUTE AUTO 0.19 K/mm3 (0.00-0.68); EOSINOPHILS PERCENT AUTO 2 % (0-6); Hematocrit 39.9 % (33.0-51.0); Hemoglobin 13.0 g/dL (11.5-16.0); IMMATURE GRAN ABSOLUTE AUTO 0.04 K/mm3 (0.00-0.10); IMMATURE GRAN PERCENT AUTO 1 % (0-1); LYMPHOCYTES ABSOLUTE AUTO 0.89 K/mm3 (0.84-5.20); LYMPHOCYTES PERCENT AUTO 11 % (21-46); MONOCYTES ABSOLUTE AUTO 0.86 K/mm3 (0.16-1.47); MONOCYTES PERCENT AUTO 11 % (4-13); Mean Corpuscular HGB Conc 32.6 g/dL (31.5-36.5); Mean Corpuscular Volume 96 fL (80-100); NEUTROPHILS ABSOLUTE AUTO 5.87 K/mm3 (1.96-9.15); NEUTROPHILS PERCENT AUTO 74 % (41-73); NRBC ABSOLUTE 0.00 K/mm3 (0.00-0.02); NRBC Auto 0.0 /100 WBC (0.0-0.2); Platelet Count 231 K/mm3 (150-400); RDW Coefficient Variation 13.7 % (11.7-14.2); RDW Standard Deviation 48.5 fL (35.1-46.3)
[2025-05-14 06:32] LABS: Anion Gap 8.0 mmol/L (3-11); Blood Urea Nitrogen 27.0 mg/dL (8-24); CO2, Blood 28.0 mmol/L (21-32); Calcium, Blood 9.7 mg/dL (8.5-10.1); Chloride, Blood 101.0 mmol/L (98-108); Creatinine, Blood 0.7 mg/dL (0.40-1.00); Glucose, Blood 133.0 mg/dL (70-99); Potassium, Blood 3.6 mmol/L (3.5-5.5); Sodium, Blood 133.0 mmol/L (136-145)
[2025-05-14 07:24] VITALS: BP 112/71
[2025-05-14] MEDS ORDERED: Furosemide 10 MG / ML 2ML Vial IV SCH (09:00)
[2025-05-14 09:27] VITALS: BP 118/81
[2025-05-14] MEDS ORDERED: ZINC OXIDE/PETROLATUM, YELLOW 1 APPLIC/71 GM PASTE TOP PRN (15:05)
[2025-05-14 16:14] VITALS: BP 99/67
--- NOTE | 2025-05-14 16:38 | NUR ---
SHIFT SUMMARY PATIENT IS A&OX 1-2, LOTS OF CONFUSION, SOME "WORD SALAD" BUT IS ABLE TO COMMUNICATE HER BASIC NEEDS. SHE IS ON 2 LITERS OF O2 BY NASAL CANNULA AND SATURATING >92% ON THAT. SHE DOES NOT HAVE TELE. SHE IS A SBA TO BSC, OCCASIONALLY FORGETS TO CALL, BED ALARM IS SET FOR THESE INCIDENTS. HER BLOOD PRESSURES HAVE BEEN STABLE IN THE ONE-TEENS. SHE CONTINUES TO BE DIURESED. SHE IS COOPERATIVE WITH HER CARE. BED IS LOW AND LOCKED, BED ALARM ARMED, CALL LIGHT IN REACH.
[2025-05-14 17:36] VITALS: BP 125/93
[2025-05-14 20:02] VITALS: BP 97/63
--- NOTE | 2025-05-15 04:49 | NUR ---
SHIFT SUMMARY A/OX2, WORD SALAD NOTED AT TIMES. SBA TO BSC, PT DOES NOT CALL APPROPRIATELY SETTING THE BED ALARM OFF OFTEN. 2L O2 VIA NC, PT REPORTS SOB WITH EXERTION. VSS, NO ACUTE CHANGES AT THIS TIME.
[2025-05-15 07:49] VITALS: BP 119/77
--- NOTE | 2025-05-15 11:12 | NUR ---
Spiritual care visit conducted. The patient is sitting up in bed and alert. She has a bit of alphabet soup going on putting the wrong words or non words where they don't belong but speaks as if it all makes sense and with confidence. She was able to communicate her discomfort which led to this wheel worker acquiring more pillows for her and adjusting her bed position. She also found the a way to speak about the importance of her kelsey. She welcomed prayer, which I gladly supplied. I also provided therapeutic listening and an encouraging and warm presence. She showed signs of being uplifted in her kelsey. I will continue to remain available.
--- NOTE | 2025-05-15 13:29 | NUR ---
MADE VISIT WITH PT AND . PT IS UNABLE TO MAKE HER NEEDS WANTS AND KNOWN, SPEAKS IN WORD SALAD. PT'S AT BEDSIDE. SHE DOES NOT SHOW ANY S/S OF FEAR OR TREPIDATION AROUND HER . ACCORDING TO PT'S SON MARCELLA, THE PT'S HAS BEEN AN ALCOHOL DRINKER ALL OF THEIR MARRIAGE, AND PT "DOESN'T LIKE IT." MARCELLA STATES HE KNOWS HIS STEP DAD LOVES HIS MOM, BUT CONCERNED THAT WHEN HE IS DRINKING, HE MAY RAISE HIS VOICE ETC. HOWEVER, MARCELLA ALSO STATES HE KNOWS HIS STEP-DAD LOVES HIS MOM AND WOULD NEVER HURT HER. FAMILY IS DISCUSSING NEXT STEPS. THEY RECOGNIZE THE PATIENT'S HEALTH IS DECLINING.
[2025-05-15 14:20] VITALS: BP 104/77
--- NOTE | 2025-05-15 15:08 | NUR ---
ASSUMED CARE. A/O X 2-3 CAN BE A LITTLE CONFUSED AT TIMES AND SPEECH UNCLR BUT PT IS ABLE TO EXPRESS NEEDS , ENC DEEP BREATHING WHEN SHE WAS ANXIOUS, VSS TREATED FOR NAUSEA PRIOR TO BREAKFAST AND MEDS. JEFRY WELL/
[2025-05-15 16:25] VITALS: BP 123/91
--- NOTE | 2025-05-15 19:06 | NUR ---
no change in cond. PT UP IN BED MAKING NEEDS KNOWN. FAMILY AT BEDSIDE SPEAKING WITH PALLIATIVE CARE. DR ROBERSON IN WITH PT FOR ROUNDING AND SPOKE WITH SON CONCERNING MEDICATIONS TO BE RESTARTED FOR HEART FAILURE. CALL LIGHT WITHIN REACH PT ABLE TO MAKE NEEDS KNOWN.
[2025-05-15 19:51] VITALS: BP 98/63
[2025-05-16 04:36] VITALS: BP 97/68
[2025-05-16 07:06] VITALS: BP 116/87
--- NOTE | 2025-05-16 10:30 | NUR ---
PALLIATIVE CARE VISIT: MET WITH PT, SON AND SPOUSE IN ROOM. EDUCATED THEM ON HOSPICE SERVICES. SPOUSE MENTIONED HE WAS TOLD BY MD GAINES ONLY HAS 2 MONTHS TO LIVE. RECOMMENDED HOSPICE SERVICES FOR SYMPTOM MANAGEMENT AND MANAGEMENT OF ILLNESS OF HEART FAILURE WHICH IS QUALIFYING HOSPICE DIAGNOSIS. SPOUSE ASKS WHICH HOSPICE AGENCIES ARE AVAILABLE. THEY LIVE IN [place] SO I STATED [facility] AND [facility] AFFILIATED WITH HOSPITAL. SPOUSE STATES I KNOW [facility] SO I WILL TALK TO THEM ABOUT SERVICES. HE WAS AGREEABLE TO HAVING REFERRAL SENT TO THEM. SPOUSE ALSO WANTS OXYGEN DELIVERED BY [facility]. GAVE UPDATE TO PRIMARY RN AND CM.
[2025-05-16] MEDS ORDERED: FURO40 PO (12:43)
[2025-05-16] MEDS ORDERED: FAMO20 PO (12:44)
[2025-05-16] MEDS ORDERED: ENTRESTO 24 MG1 EACH PO (12:45)
[2025-05-16 14:39] LABS: Anion Gap 10.0 mmol/L (3-11); Blood Urea Nitrogen 25.0 mg/dL (8-24); CO2, Blood 27.0 mmol/L (21-32); Calcium, Blood 9.8 mg/dL (8.5-10.1); Chloride, Blood 99.0 mmol/L (98-108); Creatinine, Blood 0.71 mg/dL (0.40-1.00); Glucose, Blood 142.0 mg/dL (70-99); Potassium, Blood 3.7 mmol/L (3.5-5.5); Sodium, Blood 132.0 mmol/L (136-145)
--- NOTE | 2025-05-16 15:07 | NUR ---
DISCHARGE PT DISCHARGED HOME WITH FAMILY. EDUCATION PROVIDED, ALL QUESTIONS ANSWERED, ALL BELONGINGS WITH PT.
== END 2025-05-16 14:37 | disposition home or self-care (01) | DRG 291 ==
LOC: ER 05:29 → MEDS 08:58
PROVIDERS: Emergency Medicine; Internal Medicine; ADMIT Internal Medicine
PROC: 5A09357 Assistance with Respiratory Ventilation, Less than 24 Consecutive Hours, Continuous Positive Airway Pressure (ICD-10-PCS; principal; 2025-05-11)
PROC: 3E02340 Introduction of Influenza Vaccine into Muscle, Percutaneous Approach (ICD-10-PCS; 2025-05-11)
DX: I11.0 Hypertensive heart disease with heart failure (principal); I50.43 Acute on chronic combined systolic (congestive) and diastolic (congestive) heart failure; J96.01 Acute respiratory failure with hypoxia; E78.5 Hyperlipidemia, unspecified; I25.10 Atherosclerotic heart disease of native coronary artery without angina pectoris; I27.20 Pulmonary hypertension, unspecified; I44.7 Left bundle-branch block, unspecified; E87.6 Hypokalemia; F41.9 Anxiety disorder, unspecified; I34.0 Nonrheumatic mitral (valve) insufficiency; I95.9 Hypotension, unspecified; M85.80 Other specified disorders of bone density and structure, unspecified site; Z91.198 Patient's noncompliance with other medical treatment and regimen for other reason; Z86.73 Personal history of transient ischemic attack (TIA), and cerebral infarction without residual deficits; Z88.8 Allergy status to other drugs, medicaments and biological substances; Z23 Encounter for immunization; Z86.79 Personal history of other diseases of the circulatory system; Z87.891 Personal history of nicotine dependence; Z79.899 Other long term (current) drug therapy; Z79.82 Long term (current) use of aspirin
CPT/HCPCS: 36415; 71045; 71260; 80048; 80053; 82803; 83735; 83880; 84484; 85025; 85379; 85610; 85730; 93005; 93010; 94660; 94760; 94761; 94762; 96372-59; 96374; 96375; 99285-25; A9270; G0378; J1650; J1938; J2250; J2470; Q9967